=== PATIENT | female | born 1955 | race Caucasian/White ===

== ENCOUNTER → 2020-02-04 11:47 | Outpatient (BNVA) | payer OTHER, SELFPAY | PROVIDERS: Family Provider Nurse Practitioner; PCP Nurse Practitioner; Visit Provider Registered Nurse | DX: J01.41 Acute recurrent pansinusitis (principal); R68.89 Other general symptoms and signs; R05 Cough; R50.9 Fever, unspecified; J01.40 Acute pansinusitis, unspecified; Z71.89 Other specified counseling | CPT/HCPCS: 87635 ==

== ENCOUNTER 2022-06-07 07:49 | Oncology outpatient (recurring) (ONCR) | payer OTHER, SELFPAY ==
[2022-06-07 09:21] LABS: Basophils % 0.4 %; Eosinophils # 1.1 10^3/uL (0.0-0.8); Eosinophils % 10.9 %; Hematocrit 37.2 % (37.0-47.0); Hemoglobin 10.9 g/dL (11.5-15.3); Lymphocytes # 2.6 10^3/uL (0.8-4.8); Lymphocytes % 25.5 %; Mean Corpuscular HGB Conc 29.3 g/dL (30.0-36.0); Mean Corpuscular Hemoglobin 19.6 pg (28.0-34.0); Mean Corpuscular Volume 66.8 fl (81-99); Mean Platelet Volume 8.6 fL (7.4-10.4); Monocytes # 0.6 10^3/uL (0.2-0.9); Monocytes % 5.9 %; Neutrophils # 5.68 10^3/uL (1.8-7.7); Neutrophils % 56.9 %; Nucleated Red Blood Cells % 0 %; Platelet Count 564 10^3/cmm (130-400); Red Blood Count 5.57 10^6/uL (4.1-5.3); Red Cell Distribution Width 19.8 % (12.1-15.1)
[2022-06-07 09:52] LABS: Carcinoembryonic Antigen 40.6 ng/mL (0.0-4.7)
[2022-06-07 10:03] LABS: Alanine Aminotransferase 13 U/L (0-33); Albumin Level 3.9 g/dL (3.5-5.2); Alkaline Phosphatase 87 U/L (35-105); Anion Gap 15.5 (5-19); Aspartate Amino Transferase 10 U/L (0-32); Blood Urea Nitrogen 11 mg/dL (8-23); Calcium 9.6 mg/dL (8.5-10.5); Carbon Dioxide 25 mmol/L (22-29); Chloride 98 mmol/L (98-107); Globulin 3.2 g/dL (1.3-4.6); Glomerular Filtration Rate 124.2 mL/min (90-130); Glucose 125 mg/dL (65-115); Osmolality Calculated 279 mOsm/kg (285-295); Potassium 4.5 mmol/L (3.5-5.1); Sodium 134 mmol/L (136-145); Total Bilirubin 0.2 mg/dL (0.15-1.2); Total Protein 7.1 g/dL (6.6-8.7)
[2022-06-07 13:38] LABS: Iron 15 ug/dL (37-145); Percent Saturation 3.8 % (20-50); Total Iron Binding Capacity 392 mcg/dl; Unsaturated Iron Binding 377 ug/dL (112-347)
== END 2022-06-14 23:59 | disposition home or self-care (01) ==
PROVIDERS: PCP Nurse Practitioner; Visit Provider Internal Medicine Medical Oncology
DX: C18.2 Malignant neoplasm of ascending colon (principal); Z79.899 Other long term (current) drug therapy; R59.0 Localized enlarged lymph nodes; D64.9 Anemia, unspecified
CPT/HCPCS: 80053; 82378; 83540; 83550; 85025

== ENCOUNTER 2022-06-22 13:28 | Outpatient (CLI) | payer OTHER, SELFPAY ==
--- NOTE | 2022-06-22 13:38 | USCV_ITS ---
Beth Alexander Age: 66 Gender: F : 1955 Exam Date: 06/22/2022 13:57 Ordering Phys: Nikole Collado NP Technologist: KRIS [place] [facility] [place] DIZZINESS AND SYNCOPE Risk Factors: Previous Vascular Surgery: Right Brachial BP: / Left Brachial BP: / Right Left Velocity (cm/s) Spectral Plaque Velocity (cm/s) Spectral Plaque Syst/Diast Broadening Syst/Diast Broadening 102.50/28.70 Prox CCA 101.20/ 26.30 109.20/29.80 Mid CCA 107.80/ 23.70 93.70/ 20.90 Distal CCA 93.30 / 21.00 127.40/32.60 Prox ICA 156.90/ 41.90 119.20/35.20 Mid ICA 149.10/ 45.10 98.60/ 34.40 Distal ICA 118.10/ 37.30 150.70 ECA 172.50 1.17 ICA/CCA 1.46 Antegrade Vertebral Antegrade 60.70/ 16.00 cm/s 58.40/ 25.40 cm/s Tri Subclavian Tri 184.9 121.3 0 0 CONCLUSIONS Right ICA stenosis 50-69%. Mild atheromatous plaque right carotid bulb/ICA. Left ICA stenosis 50-69%. Mild atheromatous plaque left carotid bulb/ICA. Normal antegrade Doppler flow noted in the right vertebral artery. Normal antegrade Doppler flow noted in the left vertebral artery. Regino Vasquez MD (Electronically Signed) Final Date: 22 June 2022 15:52 S
== END 2022-06-22 13:29 | disposition home or self-care (01) ==
LOC: RAD 13:30
PROVIDERS: PCP Nurse Practitioner; Visit Provider Nurse Practitioner Family
DX: I65.23 Occlusion and stenosis of bilateral carotid arteries (principal); R55 Syncope and collapse; R51.9 Headache, unspecified
CPT/HCPCS: 93880

== ENCOUNTER 2022-07-18 14:35 | Outpatient (CLI) | payer OTHER, SELFPAY ==
--- NOTE | 2022-07-18 14:41 | MM_ITS ---
WS: [id number] BILATERAL 3D TOMOSYNTHESIS DIGITAL DIAGNOSTIC MAMMOGRAPHY WITH CAD CLINICAL INFORMATION: abnormal PET COMPARISON: Outside PET/CT report July 10, 2022 TECHNIQUE: Bilateral CC, MLO, and ML views. FINDINGS: Scattered fibroglandular densities bilaterally. Ovoid solid nodule upper outer RIGHT breast measuring 1.4 x 1.8 cm. Ultrasound described below. A few small ovoid asymmetric densities LEFT breast anterior depth and posterior depth outer LEFT opal st may represent small intramammary lymph nodes but indeterminant. No prior comparisons. This can be further evaluated with ultrasound when patient returns for biopsy. Punctate and lucent centered calc ifications. ULTRASOUND BREAST RIGHT TECHNIQUE: Ultrasound right breast focused area of concern. CLINICAL INFORMATION: abnormal PET FINDINGS: Ultrasound RIGHT breast RIGHT axilla. Prominent lymph node measuring 3.0 x 0.9 x 2.3 cm. This is inde terminant and could be sampled at the time of breast biopsy. Hypoechoic solid lesion at the 9:00 posi tion 2 cm from nipple measuring 2.0 1.0x1.7 cm. Recommend further evaluation with ultrasound-guided b iopsy. Incidental tiny cysts at the 9:00 position near the areola. MM/[place] [id number] IMPRESSION: BI-RADS: 5-Highly Suggestive of Malignancy FOLLOW UP: US Guided Biopsy Recommended Recommend ultrasound-guided biopsy RIGHT breast lesion. Enlarged RIGHT axillary lymph node can also be sampled at that time. Recommend ultrasound of the small ovoid asymmetric densities outer LEFT breast near the 3:00 and 4:00 positions when patient returns for biopsy.
--- NOTE | 2022-07-18 15:43 | US_ITS ---
WS: [id number] BILATERAL 3D TOMOSYNTHESIS DIGITAL DIAGNOSTIC MAMMOGRAPHY WITH CAD CLINICAL INFORMATION: abnormal PET COMPARISON: Outside PET/CT report July 10, 2022 TECHNIQUE: Bilateral CC, MLO, and ML views. FINDINGS: Scattered fibroglandular densities bilaterally. Ovoid solid nodule upper outer RIGHT breast measuring 1.4 x 1.8 cm. Ultrasound described below. A few small ovoid asymmetric densities LEFT breast anterior depth and posterior depth outer LEFT opal st may represent small intramammary lymph nodes but indeterminant. No prior comparisons. This can be further evaluated with ultrasound when patient returns for biopsy. Punctate and lucent centered calc ifications. ULTRASOUND BREAST RIGHT TECHNIQUE: Ultrasound right breast focused area of concern. CLINICAL INFORMATION: abnormal PET FINDINGS: Ultrasound RIGHT breast RIGHT axilla. Prominent lymph node measuring 3.0 x 0.9 x 2.3 cm. This is inde terminant and could be sampled at the time of breast biopsy. Hypoechoic solid lesion at the 9:00 posi tion 2 cm from nipple measuring 2.0 1.0x1.7 cm. Recommend further evaluation with ultrasound-guided b iopsy. Incidental tiny cysts at the 9:00 position near the areola. US/US breast RT limited* [id number] IMPRESSION: BI-RADS: 5-Highly Suggestive of Malignancy FOLLOW UP: US Guided Biopsy Recommended Recommend ultrasound-guided biopsy RIGHT breast lesion. Enlarged RIGHT axillary lymph node can also be sampled at that time. Recommend ultrasound of the small ovoid asymmetric densities outer LEFT breast near the 3:00 and 4:00 positions when patient returns for biopsy.
[2022-07-18 16:55] LABS: Basophils % 0.5 %; Eosinophils # 0.2 10^3/uL (0.0-0.8); Eosinophils % 2.8 %; Hematocrit 43.4 % (37.0-47.0); Lymphocytes # 3.8 10^3/uL (0.8-4.8); Lymphocytes % 45.2 %; Mean Corpuscular Hemoglobin 21.8 pg (28.0-34.0); Mean Corpuscular Volume 72.8 fl (81-99); Monocytes # 0.6 10^3/uL (0.2-0.9); Monocytes % 6.9 %; Neutrophils # 3.74 10^3/uL (1.8-7.7); Neutrophils % 44.4 %; Nucleated Red Blood Cells % 0 %; Platelet Count 446 10^3/cmm (130-400); Red Blood Count 5.96 10^6/uL (4.1-5.3); Red Cell Distribution Width 25.9 % (12.1-15.1); White Blood Count 8.4 10^3/uL (4.0-10.0)
[2022-07-18 17:47] LABS: Alanine Aminotransferase 10 U/L (0-33); Albumin Level 4.1 g/dL (3.5-5.2); Alkaline Phosphatase 85 U/L (35-105); Anion Gap 15.7 (5-19); Aspartate Amino Transferase 9 U/L (0-32); Blood Urea Nitrogen 12 mg/dL (8-23); Calcium 9.6 mg/dL (8.5-10.5); Carbon Dioxide 27 mmol/L (22-29); Globulin 3.2 g/dL (1.3-4.6); Glomerular Filtration Rate 124.2 mL/min (90-130); Glucose 108 mg/dL (65-115); Potassium 3.7 mmol/L (3.5-5.1); Sodium 136 mmol/L (136-145); Total Bilirubin 0.2 mg/dL (0.15-1.2); Total Protein 7.3 g/dL (6.6-8.7)
[2022-07-18 21:36] LABS: Carcinoembryonic Antigen 8.1 ng/mL (0.0-4.7)
[2022-07-18 21:44] LABS: Chloride 97 mmol/L (98-107)
== END 2022-07-18 14:36 | disposition home or self-care (01) ==
PROVIDERS: PCP Nurse Practitioner Family; Visit Provider Internal Medicine Medical Oncology
DX: R93.89 Abnormal findings on diagnostic imaging of other specified body structures (principal); N63.25 Unspecified lump in the left breast, overlapping quadrants; N63.10 Unspecified lump in the right breast, unspecified quadrant; C18.0 Malignant neoplasm of cecum
CPT/HCPCS: 36415; 76642; 77062; 80053; 82378; 85025

== ENCOUNTER 2022-08-18 11:51 | Outpatient (CLI) | payer OTHER, SELFPAY ==
--- NOTE | 2022-08-18 | US_ITS ---
WS: [id number] ULTRASOUND-GUIDED RIGHT BREAST BIOPSY CLINICAL INFORMATION: abnormal mammogram FINDINGS: The procedure including risks, benefits, and complications were discussed with the patient who agreed to proceed. Using sterile technique patient was prepped and draped in the usual sterile fashion. Aft er 1% lidocaine utilizing real-time ultrasound guidance 5 14-gauge cores were obtained of the RIGHT b reast lesion at the 9 o'clock position. Subsequently a titanium clip was placed in the biopsy cavity. Next, the RIGHT axillary lymph node was biopsied. After 1% lidocaine utilizing real-time ultrasound g uidance 2 14-gauge cores were obtained of the RIGHT axillary lymph node. Subsequently a titanium clip was placed in the biopsy cavity. Pathology demonstrates A. Breast, right breast mass , ultrasound-guided biopsy: - Fibroadenoma with sclerosing adenosis. - No malignancy identified. B. Lymph node, right axillary , ultrasound-guided biopsy: - Benign lymphoid tissue with sinus histiocytosis. - No malignancy identified. US/US biopsy lymph node breast/ax IMPRESSION: 1. Uncomplicated ultrasound-guided RIGHT breast biopsy and RIGHT axillary lymp h node biopsy. 2. The pathology demonstrates fibroadenoma right breast and benign lymphoid ti ssue Right axillary lymph node. 3. Recommend 6 month follow-up RIGHT breast ultrasound to confirm stability. BI-RADS: 3-Probably Benign FOLLOW UP: 6 Month Follow-up
--- NOTE | 2022-08-18 11:59 | US_ITS ---
WS: [id number] ULTRASOUND-GUIDED RIGHT BREAST BIOPSY CLINICAL INFORMATION: abnormal mammogram FINDINGS: The procedure including risks, benefits, and complications were discussed with the patient who agreed to proceed. Using sterile technique patient was prepped and draped in the usual sterile fashion. Aft er 1% lidocaine utilizing real-time ultrasound guidance 5 14-gauge cores were obtained of the RIGHT b reast lesion at the 9 o'clock position. Subsequently a titanium clip was placed in the biopsy cavity. Next, the RIGHT axillary lymph node was biopsied. After 1% lidocaine utilizing real-time ultrasound g uidance 2 14-gauge cores were obtained of the RIGHT axillary lymph node. Subsequently a titanium clip was placed in the biopsy cavity. Pathology demonstrates A. Breast, right breast mass , ultrasound-guided biopsy: - Fibroadenoma with sclerosing adenosis. - No malignancy identified. B. Lymph node, right axillary , ultrasound-guided biopsy: - Benign lymphoid tissue with sinus histiocytosis. - No malignancy identified. US/[place] [id number] IMPRESSION: 1. Uncomplicated ultrasound-guided RIGHT breast biopsy and RIGHT axillary lymp h node biopsy. 2. The pathology demonstrates fibroadenoma right breast and benign lymphoid ti ssue Right axillary lymph node. 3. Recommend 6 month follow-up RIGHT breast ultrasound to confirm stability. BI-RADS: 3-Probably Benign FOLLOW UP: 6 Month Follow-up
--- NOTE | 2022-08-18 11:59 | US_ITS ---
WS: [id number] ULTRASOUND BREAST LEFT TECHNIQUE: Ultrasound left breast focused area of concern. CLINICAL INFORMATION: abnormal mammogram COMPARISON: None. FINDINGS: Ultrasound LEFT breast at the 3 to 4:00 position. Hypoechoic solid well-circumscribed nodules at the 3:00 position, 3 cm nipple measuring 1.2 x 1.0 x 0.7 cm and 3:00 position 1 cm from the nipple, measu ring 0.7 x 0.6 x 0.5 cm most likely fibroadenomas considering prior history and recent right-sided bi opsy that demonstrated a fibroadenoma. Additional smaller incidental cysts. US/US breast LT limited* [id number] IMPRESSION: BI-RADS 3 probably benign FOLLOW UP: 6 month follow-up LEFT breast ultrasound
== END 2022-08-18 11:52 | disposition home or self-care (01) ==
LOC: RAD 11:52
PROVIDERS: PCP Nurse Practitioner Family; Visit Provider Internal Medicine Medical Oncology
DX: D24.1 Benign neoplasm of right breast (principal); D36.7 Benign neoplasm of other specified sites
CPT/HCPCS: 19083; 38505; 76642; 76942; 88305; 88342

== ENCOUNTER 2022-11-29 12:03 | Oncology outpatient (recurring) (ONCR) | payer MEDICAID, SELFPAY ==
[2022-11-29 12:57] LABS: Basophils % 0.4 %; Eosinophils # 0.1 10^3/uL (0.0-0.8); Eosinophils % 1.9 %; Hematocrit 47.4 % (37.0-47.0); Hemoglobin 15.4 g/dL (11.5-15.3); Lymphocytes # 2.8 10^3/uL (0.8-4.8); Lymphocytes % 38.2 %; Mean Corpuscular HGB Conc 32.5 g/dL (30.0-36.0); Mean Corpuscular Hemoglobin 25.6 pg (28.0-34.0); Mean Corpuscular Volume 78.9 fl (81-99); Mean Platelet Volume 8.9 fL (7.4-10.4); Monocytes # 0.5 10^3/uL (0.2-0.9); Monocytes % 6.8 %; Neutrophils # 3.83 10^3/uL (1.8-7.7); Neutrophils % 52.4 %; Nucleated Red Blood Cells % 0 %; Platelet Count 467 10^3/cmm (130-400); Red Blood Count 6.01 10^6/uL (4.1-5.3); White Blood Count 7.3 10^3/uL (4.0-10.0)
[2022-11-29 13:24] LABS: Carcinoembryonic Antigen 7.6 ng/mL (0.0-4.7)
[2022-11-29 13:35] LABS: Alanine Aminotransferase 17 U/L (0-33); Albumin Level 4.2 g/dL (3.5-5.2); Alkaline Phosphatase 83 U/L (35-105); Anion Gap 18.8 (5-19); Aspartate Amino Transferase 12 U/L (0-32); Blood Urea Nitrogen 17 mg/dL (8-23); Calcium 9.4 mg/dL (8.5-10.5); Carbon Dioxide 22 mmol/L (22-29); Chloride 95 mmol/L (98-107); Glucose 128 mg/dL (65-115); Osmolality Calculated 277 mOsm/kg (285-295); Potassium 3.8 mmol/L (3.5-5.1); Sodium 132 mmol/L (136-145); Total Bilirubin 0.2 mg/dL (0.15-1.2); Total Protein 7.2 g/dL (6.6-8.7)
[2022-11-29 15:39] LABS: Iron 83 ug/dL (37-145)
[2022-11-29 15:39] LABS: Iron 82 ug/dL (37-145); Percent Saturation 21.8 % (20-50); Total Iron Binding Capacity 375 mcg/dl; Unsaturated Iron Binding 293 ug/dL (112-347)
== END 2022-12-12 23:59 | disposition home or self-care (01) ==
PROVIDERS: Nurse Practitioner; PCP Nurse Practitioner Family; Visit Provider Internal Medicine Medical Oncology
DX: C18.2 Malignant neoplasm of ascending colon (principal); C78.1 Secondary malignant neoplasm of mediastinum; C79.31 Secondary malignant neoplasm of brain; C77.3 Secondary and unspecified malignant neoplasm of axilla and upper limb lymph nodes; D50.9 Iron deficiency anemia, unspecified; Z79.899 Other long term (current) drug therapy
CPT/HCPCS: 36415; 80053; 82378; 83540; 83550; 85025

== ENCOUNTER 2023-01-10 08:27 | Outpatient (CLI) | payer MEDICARE, MEDICAID, SELFPAY ==
--- NOTE | 2023-01-10 10:00 | CT_ITS ---
WS: [id number] CT CHEST, ABDOMEN, AND PELVIS TECHNIQUE: Contrast-enhanced CT of the chest, abdomen, and pelvis with coronal and sagittal reformatt ed images. CLINICAL INFORMATION: followup PET/CT from 06/2022 (outside facility) COMPARISON: None. DLP: 947.[address] scans at [facility] use at least one of these dose optimization techniques: automated e xposure control; mA and/or kV adjustment per patient size (includes targeted exams where dose is matc hed to clinical indication); or iterative reconstruction. CT CHEST: Previously described RIGHT lateral breast nodule previously biopsied unchanged from the prior PET/CT August 09, 2022 measuring 1.5 x 1.3 cm with a tiny central calcification. Prior biopsy was benign. N o acute pulmonary infiltrates. Mild chronic emphysematous changes. No focal pneumonia or pleural flui d. There is a new suspicious pulmonary nodule in the RIGHT lower lobe measuring 8 mm not present on t he prior PET/CT July 10, 2022. Recommend further evaluation with PET/CT to assess for activity. Metastatic disease not excluded. LEFT lung is well aerated. No mediastinal or hilar lymphadenopathy. Normal caliber thoracic aorta. Ao rtic calcification. Moderate atheromatous disease descending thoracic aorta. No mediastinal or hilar lymphadenopathy. No axillary lymphadenopathy. Hypertrophic changes thoracic spine. CT ABDOMEN AND PELVIS: Diffuse fatty infiltration liver. Normal pancreatic parenchymal enhancement. Normal portal vein and s plenic vein. Moderate atheromatous disease abdominal aorta with eccentric atheromatous plaque. Adrena l glands are normal. Normal renal parenchymal enhancement. No hydronephrosis. Small renal cysts. No a bdominal or pelvic lymphadenopathy. No inguinal lymphadenopathy. Normal sigmoid colon. A few air-fluid levels in the transverse colon. Focal area of narrowing in the descending LEFT colon may be due to spasm however recommend further evaluation with colonoscopy. Evid ence of prior RIGHT hemicolectomy. CT/CT chest abdpel w/*[id number] IMPRESSION: 1. New solid RIGHT lower lobe pulmonary nodule measuring 8 mm suspicious in ap pearance. This is nonspecific but metastatic disease not excluded. Recommend fu rther evaluation with PET/CT to assess for activity. This is new since the prio r studies. 2. Previously described RIGHT breast nodule was previously biopsied and shown to represent fibroadenoma. New central calcification. This is unchanged in size . 3. Air-fluid levels in the transverse colon with focal area of luminal narrowi ng or stricture in the descending LEFT colon. This is indeterminant and recomme nd further evaluation with colonoscopy. 4. No mediastinal or hilar lymphadenopathy. No axillary lymphadenopathy. 5. Hepatomegaly diffuse fatty infiltration liver. 6. No adenopathy in the abdomen or pelvis. 7. No other suspicious findings.
[2023-01-10] MEDS: iohexol 350 mg/mL 500 mL Btl (per mL) IV (10:04)
[2023-01-10] MEDS: iohexol 350 mg/mL 500 mL Btl (per mL) PO (10:04)
== END 2023-01-10 08:28 | disposition home or self-care (01) ==
LOC: RAD 08:36
PROVIDERS: PCP Nurse Practitioner Family; Visit Provider Nurse Practitioner
DX: C18.0 Malignant neoplasm of cecum (principal); R91.1 Solitary pulmonary nodule; D24.1 Benign neoplasm of right breast
CPT/HCPCS: 71260; 74177; Q9967

== ENCOUNTER 2023-02-03 06:05 | Outpatient (CLI) | payer MEDICARE, MEDICAID, SELFPAY ==
--- NOTE | 2023-02-03 10:30 | PETR_ITS ---
PROCEDURE INFORMATION: Exam: PET/CT Skull Base to Mid-thigh Exam date and time: 02/03/2023 11:24 AM Age: 67 years old Clinical indication: Condition or disease; Primary cancer: Malignant neoplasm of cecum; Follow-up oncological assessment; Condition/disease: New lung nodule; Additional info: New lung nodule per CT LABS AND CLINICAL REPORTS: Glucose: 141 mg/dl Treatment strategy for malignancy (PET staging): Restaging (PS) TECHNIQUE: Imaging protocol: Following at least four-hour fasting and following the injection of radiopharmaceutical, low dose CT images were obtained. Then, PET images were obtained. Attenuation corrected images were constructed using the CT scan. Fused images of PET and CT were reviewed. The standardized uptake values (SUV) reported below are maximum values within a region of interest, expressed in gm/ml. Exam includes orbital meatal line to mid-thigh. Radiopharmaceutical: 15.87 mCi F-18 FDG (Fluorodeoxyglucose), IV. Time of imaging post radiopharmaceutical administration: 1 hour Injection site: Left antecubital COMPARISON: CT chest, abdomen and pelvis 01/10/2023, PT PET Scan 07/10/2022 10:26 AM FINDINGS: Brain: Visualized brain has normal physiologic uptake. Pharynx: No abnormal uptake. Larynx: No abnormal uptake. Lungs, pleura and trachea: A solid noncalcified right lower lobe nodule measures 8 mm on series 3, image 59, SUV max 0.9 and is similar in size compared with 01/10/2023. This nodule was significantly less conspicuous and measured 2-3 mm on the prior PET-CT without elevated uptake. Heart: Normal physiologic uptake. Mediastinal space: No abnormal uptake. Liver: No abnormal uptake. Subtle uptake along the medial margin of the left lower lobe on series 4, image 95 appears to represent superimposed physiologic activity within adjacent distal stomach proximal duodenum. Gallbladder and bile ducts: No abnormal uptake. Pancreas: No abnormal uptake. Spleen: No abnormal uptake. Calcified granulomas in the spleen are present. Adrenal glands: No abnormal uptake. Kidneys and ureters: Normal physiologic uptake. Stomach and bowel: No abnormal uptake. Vasculature: No abnormal uptake. There are diffuse atherosclerotic changes. Lymph nodes: Small similar in size mediastinal lymph nodes are noted, some of which demonstrates low-level activity. Examples: in the pretracheal space measuring 6 mm on series 3, image 48, SUV max 2.6 (previously 2.9). An aortopulmonary window lymph node measuring 5 mm on series 3, image 50 is noted, SUV max 2.6 (previously 2.6). A precarinal lymph node measures 1.4 x 1.0 cm on series 3, image 54, SUV max 2.5 (previously 3.7). Small subcarinal lymph nodes measuring less than 1 cm are identified, SUV max 3.1 (previously 2.9). A small focus of uptake within the inferior left hilar region in a lymph node measuring approximately 8 mm on series 3, image 58 is present, SUV max 3.4 (previously 3.4). Minimal uptake is noted in the right hilar region possibly within an approximately 6 mm lymph node on series 3, image 56, SUV max 3.0 (previously 3.2). Assessment of the hilar regions is limited without intravenous contrast. Bones/joints: Mild degenerative appearing sclerotic changes are noted at the sacroiliac joints.There is mild diffuse vertebral body spondylosis. Mild degenerative appearing uptake is noted in the left C4-C5 facet joint, SUV max 3.0. Soft tissues: A similar in size lateral right breast soft tissue density nodule with a central biopsy clip measures 1.7 cm in diameter on series 3, image 67, SUV max 1.8 (previously 1.7). METRICS: Mediastinal blood pool: SUV max 2.5 PET/PET skulltothi SUBSEQ [id number] IMPRESSION: 1. A right lower lobe nodule is not radiotracer avid. This nodule appears to have been faintly present on the prior PET-CT and is increased in size since the prior PET-CT, similar in size compared with 01/10/2023. Assessment of small nodules can be limited by PET-CT. Although lack of uptake favors a benign finding, a metastatic nodule, given the history of malignancy and the interval increase in size since the prior PET-CT cannot be entirely excluded from this exam. 2. Similar size of small mediastinal and hilar lymph nodes demonstrating low level activity which is similar to slightly decreased compared with the prior PET-CT.This may be reactive, secondary to infectious or inflammatory involvement. Neoplastic involvement cannot be entirely excluded. 3. Similar in size previously biopsied soft tissue density nodule in the right breast without significant uptake (SUV max 1.8, previously 1.7) compatible with a benign finding. 4. Additional nonurgent findings as detailed above.
== END 2023-02-03 06:06 | disposition home or self-care (01) ==
LOC: RAD 02-05 06:05
PROVIDERS: PCP Nurse Practitioner Family; Visit Provider Internal Medicine Medical Oncology
DX: C18.0 Malignant neoplasm of cecum (principal); R91.1 Solitary pulmonary nodule
CPT/HCPCS: 78815; A9552

== ENCOUNTER 2023-02-28 09:47 | Outpatient (CLI) | payer MEDICARE, MEDICAID, SELFPAY | END 2023-02-28 09:48 | disposition home or self-care (01) | PROVIDERS: PCP Nurse Practitioner Family; Visit Provider Internal Medicine Medical Oncology | DX: Z08 Encounter for follow-up examination after completed treatment for malignant neoplasm; Z85.038 Personal history of other malignant neoplasm of large intestine; R91.1 Solitary pulmonary nodule; M47.812 Spondylosis without myelopathy or radiculopathy, cervical region; M50.321 Other cervical disc degeneration at C4-C5 level; R59.0 Localized enlarged lymph nodes; K76.89 Other specified diseases of liver; Z92.21 Personal history of antineoplastic chemotherapy; Z87.891 Personal history of nicotine dependence | CPT/HCPCS: 36415; 76642; 80053; 82378; 85025; 99214 ==

== ENCOUNTER 2023-02-28 09:54 | Oncology outpatient (recurring) (ONCR) | payer MEDICARE, MEDICAID, SELFPAY ==
--- NOTE | 2023-02-28 10:00 | US_ITS ---
WS: [id number] ULTRASOUND BREAST RIGHT TECHNIQUE: Ultrasound right breast focused area of concern. CLINICAL INFORMATION: abnormal mammogram COMPARISON: Ultrasound August 18, 2022 FINDINGS: Previously described fibroadenoma 9:00 position 2 cm from the nipple is unchanged. Stable biopsy clip . This measures approximately 1.9 x 1.1 x 1.8 cm. Stable RIGHT axillary lymph nodes. No new suspicious findings. Recommend return to annual screening gloria thompson. US/US breast RT limited* [id number] IMPRESSION: BI-RADS 2 benign Return to annual screening mammography
[2023-02-28 11:22] LABS: Basophils % 0.4 %; Eosinophils # 0.2 10^3/uL (0.0-0.8); Eosinophils % 2.1 %; Hematocrit 47.2 % (37.0-47.0); Lymphocytes # 3.6 10^3/uL (0.8-4.8); Lymphocytes % 37.8 %; Mean Corpuscular HGB Conc 31.8 g/dL (30.0-36.0); Mean Corpuscular Hemoglobin 26.4 pg (28.0-34.0); Mean Platelet Volume 8.9 fL (7.4-10.4); Monocytes # 0.8 10^3/uL (0.2-0.9); Monocytes % 8.7 %; Neutrophils % 50.8 %; Nucleated Red Blood Cells % 0 %; Platelet Count 439 10^3/cmm (130-400); Red Blood Count 5.69 10^6/uL (4.1-5.3); Red Cell Distribution Width 14.7 % (12.1-15.1); White Blood Count 9.6 10^3/uL (4.0-10.0)
[2023-02-28 11:58] LABS: Carcinoembryonic Antigen 7.6 ng/mL (0.0-4.7)
[2023-02-28 12:09] LABS: Alanine Aminotransferase 13 U/L (0-33); Albumin Level 3.9 g/dL (3.5-5.2); Alkaline Phosphatase 81 U/L (35-105); Anion Gap 18.7 (5-19); Aspartate Amino Transferase 13 U/L (0-32); Blood Urea Nitrogen 11 mg/dL (8-23); Calcium 9.9 mg/dL (8.5-10.5); Carbon Dioxide 24 mmol/L (22-29); Chloride 95 mmol/L (98-107); Globulin 2.9 g/dL (1.3-4.6); Glomerular Filtration Rate 100.3 mL/min (90-130); Glucose 112 mg/dL (65-115); Osmolality Calculated 278 mOsm/kg (285-295); Potassium 3.7 mmol/L (3.5-5.1); Sodium 134 mmol/L (136-145); Total Bilirubin 0.2 mg/dL (0.15-1.2); Total Protein 6.8 g/dL (6.6-8.7)
== END 2023-03-14 23:59 | disposition home or self-care (01) ==
PROVIDERS: PCP Nurse Practitioner Family; Visit Provider Internal Medicine Medical Oncology
DX: C18.0 Malignant neoplasm of cecum (principal); R92.8 Other abnormal and inconclusive findings on diagnostic imaging of breast
CPT/HCPCS: 36415; 76642; 80053; 82378; 85025

== ENCOUNTER 2023-07-17 13:36 | Oncology outpatient (recurring) (ONCR) | payer MEDICARE, MEDICAID, SELFPAY ==
[2023-07-17 13:47] VITALS: BP 134/75; PULSE 101; RESP 16; TEMP 36.4; O2SAT 93
[2023-07-17 13:59] LABS: Basophils % 0.4 %; Eosinophils # 0.2 10^3/uL (0.0-0.8); Eosinophils % 2.1 %; Hematocrit 48.2 % (36-47); Lymphocytes % 33.1 %; Mean Corpuscular HGB Conc 32.8 g/dL (30-55); Mean Corpuscular Hemoglobin 26.6 pg (27-33); Mean Corpuscular Volume 81.1 fl (85-98); Mean Platelet Volume 8.8 fL (7.4-10.4); Monocytes # 0.6 10^3/uL (0.2-0.9); Monocytes % 7.1 %; Neutrophils # 5.11 10^3/uL (1.8-7.7); Neutrophils % 57.2 %; Nucleated Red Blood Cells % 0 %; Platelet Count 427 10^3/cmm (157-399); Red Blood Count 5.94 10^6/uL (3.85-5.65); Red Cell Distribution Width 14.8 % (12.1-15.1); White Blood Count 8.96 10^3/uL (3.29-11.43)
[2023-07-17 14:29] LABS: Carcinoembryonic Antigen 8.3 ng/mL (0.0-4.7)
[2023-07-17 14:40] LABS: Alanine Aminotransferase 15 U/L (0-33); Albumin Level 4.4 g/dL (3.5-5.2); Alkaline Phosphatase 76 U/L (35-105); Anion Gap 16.6 (5-19); Aspartate Amino Transferase 13 U/L (0-32); Blood Urea Nitrogen 15 mg/dL (8-23); Calcium 9.7 mg/dL (8.5-10.5); Carbon Dioxide 27 mmol/L (22-29); Chloride 98 mmol/L (98-107); Globulin 2.9 g/dL (1.3-4.6); Glucose 156 mg/dL (65-115); Osmolality Calculated 290 mOsm/kg (285-295); Potassium 3.6 mmol/L (3.5-5.1); Sodium 138 mmol/L (136-145); Total Bilirubin 0.3 mg/dL (0.15-1.2); Total Protein 7.3 g/dL (6.6-8.7)
[2023-07-17 17:55] LABS: Ferritin 19 ng/mL (15-150); Iron 96 ug/dL (37-145); Percent Saturation 26.8 % (20-50); Total Iron Binding Capacity 357 mcg/dl; Unsaturated Iron Binding 261 ug/dL (112-347)
== END 2023-08-14 23:59 | disposition home or self-care (01) ==
PROVIDERS: Nurse Practitioner Family; PCP Nurse Practitioner Family; Visit Provider Internal Medicine Medical Oncology
DX: C18.2 Malignant neoplasm of ascending colon (principal); C78.1 Secondary malignant neoplasm of mediastinum; C79.31 Secondary malignant neoplasm of brain; C77.3 Secondary and unspecified malignant neoplasm of axilla and upper limb lymph nodes; D50.9 Iron deficiency anemia, unspecified; Z79.899 Other long term (current) drug therapy
CPT/HCPCS: 36415; 80053; 82378; 82728; 83540; 83550; 85025; 99214

== ENCOUNTER 2023-09-17 14:37 | Outpatient (CLI) | payer MEDICARE, MEDICAID, SELFPAY ==
[2023-09-17] MEDS: iohexol 350 mg/mL 500 mL Btl (per mL) PO (15:26)
--- NOTE | 2023-09-17 16:00 | CT_ITS ---
WS: [id number] CT CHEST, ABDOMEN AND PELVIS WITH CONTRAST HISTORY: Restaging colon cancer. TECHNIQUE: Contiguous 5 mm axial imaging performed through the chest, abdomen and pelvis with IV cont rast, oral contrast has been provided. Coronal and sagittal reformats chest. Coronal and sagittal ref ormats through the abdomen and pelvis. All CT scans at [facility] use at least one of these d ose optimization techniques: automated exposure control; mA and/or kV adjustment per patient size (in cludes targeted exams where dose is matched to clinical indication); or iterative reconstruction. CONTRAST: Omnipaque 350; 100 mL IV. DLP: 951.71 mGy.cm COMPARISON: 01/10/2023, PET/CT 02/03/[address]: Interval development of new, bilateral and multilobar pulmonary nodules since 01/10/2023. Th e previously described 8 mm well-circumscribed nodule in the RIGHT lower lobe has increased from 8 to 15 mm in size. There are now new additional smaller nodules scattered throughout the lungs. No dense area of consolidation or pneumonia. No pericardial or pleural effusions. Extensive atherosclerotic p laque within the thoracic aorta. Irregular plaque within the descending aorta. Heart is normal size. Mediastinal and hilar lymph nodes have slightly increased in size since the prior study. Largest lymp h node is 13 mm on the inferior RIGHT paratracheal region. There are smaller bilateral hilar lymph no katty. No axillary adenopathy. Previously biopsied RIGHT breast mass is slightly increased in size now measu ring 15 x 17 mm. Prior negative biopsy. Mild loss of height involving T12. Variable density along the superior vertebral body. Abdomen CT: Normal liver. No metastatic disease. Normal size spleen. Negative gallbladder. Normal moyer creas. No bile duct dilatation. Very mild thickening of the LEFT adrenal gland limbs. No mass. Normal RIGHT adrenal gland. Bilateral cortical cyst within each kidney. There is a too small to characteriz e cortical hypodensity in the posterior LEFT kidney at 7 mm. Extensive atherosclerosis within the abd ominal aorta. There is intimal thickening and plaque. No aneurysm. Stomach is filled with food products. No small bowel obstruction. Prior RIGHT hemicolectomy. Retentio n of fecal material throughout the visualized colon. No obstruction is identified. Distal colon is na rrowed but no obstruction. No ascites. No adenopathy. Pelvic CT: No free fluid or adenopathy in the pelvis. Negative urinary bladder. No osteoblastic or osteolytic bone disease. IMPRESSION: 1. Multilobar, bilateral pulmonary nodules are new since 01/10/2023. The previously described nodule i n the RIGHT lower lobe has increased from 8 mm to 15 mm. There are additional smaller pulmonary nodul es highly suspicious for metastatic disease. 2. Mild increase in the size of the mediastinal and hilar lymph nodes. The largest lymph node is 13 m m in the RIGHT inferior paratracheal region. 3. No metastatic disease to the liver or adrenal glands. 4. No adenopathy within the abdomen or pelvis. No ascites. 5. Prior RIGHT hemicolectomy. 6. New compression of T12. Probably osteoporotic compression fracture. Early metastatic disease shoul d also be included in the differential. 7. Recommend follow-up PET/CT imaging.
[2023-09-17] MEDS: iohexol 350 mg/mL 500 mL Btl (per mL) IV (16:30)
== END 2023-09-17 14:38 | disposition home or self-care (01) ==
LOC: RAD 14:37
PROVIDERS: PCP Nurse Practitioner Family; Visit Provider Nurse Practitioner Family
DX: C18.0 Malignant neoplasm of cecum (principal); R91.8 Other nonspecific abnormal finding of lung field; R59.0 Localized enlarged lymph nodes; Z90.49 Acquired absence of other specified parts of digestive tract; M53.9 Dorsopathy, unspecified
CPT/HCPCS: 71260; 74177; Q9967

== ENCOUNTER 2023-09-20 07:45 | Oncology outpatient (recurring) (ONCR) | payer MEDICARE, MEDICAID, SELFPAY ==
[2023-09-20 08:10] VITALS: BP 156/87; PULSE 97; RESP 16; TEMP 36.8; O2SAT 96
[2023-09-20 08:26] LABS: Basophils % 0.2 %; Eosinophils # 0.2 10^3/uL (0.0-0.8); Eosinophils % 1.9 %; Lymphocytes # 2.1 10^3/uL (0.8-4.8); Mean Corpuscular Hemoglobin 26.7 pg (27-33); Mean Corpuscular Volume 83.5 fl (85-98); Mean Platelet Volume 8.7 fL (7.4-10.4); Monocytes # 0.6 10^3/uL (0.2-0.9); Monocytes % 6.3 %; Neutrophils # 6.57 10^3/uL (1.8-7.7); Neutrophils % 69.4 %; Nucleated Red Blood Cells % 0 %; Platelet Count 454 10^3/cmm (157-399); Red Blood Count 5.87 10^6/uL (3.85-5.65); Red Cell Distribution Width 15.1 % (12.1-15.1); White Blood Count 9.47 10^3/uL (3.29-11.43)
[2023-09-20 08:49] LABS: Carcinoembryonic Antigen 7.1 ng/mL (0.0-4.7)
[2023-09-20 09:00] LABS: Alanine Aminotransferase 16 U/L (0-33); Albumin Level 4.2 g/dL (3.5-5.2); Alkaline Phosphatase 95 U/L (35-105); Anion Gap 16.1 (5-19); Aspartate Amino Transferase 14 U/L (0-32); Blood Urea Nitrogen 13 mg/dL (8-23); Calcium 10.1 mg/dL (8.5-10.5); Carbon Dioxide 28 mmol/L (22-29); Chloride 94 mmol/L (98-107); Glucose 202 mg/dL (65-115); Osmolality Calculated 284 mOsm/kg (285-295); Potassium 4.1 mmol/L (3.5-5.1); Sodium 134 mmol/L (136-145); Total Bilirubin 0.2 mg/dL (0.15-1.2); Total Protein 7.2 g/dL (6.6-8.7)
== END 2023-10-14 23:59 | disposition home or self-care (01) ==
PROVIDERS: PCP Nurse Practitioner Family; Visit Provider Internal Medicine Medical Oncology
DX: C18.2 Malignant neoplasm of ascending colon (principal); C78.1 Secondary malignant neoplasm of mediastinum; C79.31 Secondary malignant neoplasm of brain; C77.3 Secondary and unspecified malignant neoplasm of axilla and upper limb lymph nodes; D50.9 Iron deficiency anemia, unspecified; Z79.899 Other long term (current) drug therapy
CPT/HCPCS: 36415; 80053; 82378; 85025; 99214

== ENCOUNTER 2023-10-16 10:07 | Outpatient (CLI) | payer MEDICARE, MEDICAID, SELFPAY ==
--- NOTE | 2023-10-16 10:30 | PETR_ITS ---
PROCEDURE INFORMATION: Exam: PET/CT Skull Base to Mid-thigh Exam date and time: 10/16/2023 11:04 AM Age: 67 years old Clinical indication: Condition or disease; Primary cancer: Malignant neoplasm of cecum; Follow-up oncological assessment; Prior surgery; Surgery date: 6+ months; Surgery type: Hyst, colon; Additional info: Follow up LABS AND CLINICAL REPORTS: Glucose: 123 mg/dl Treatment strategy for malignancy (PET staging): Restaging (PS) TECHNIQUE: Imaging protocol: Following at least four-hour fasting and following the injection of radiopharmaceutical, low dose CT images were obtained. Then, PET images were obtained. Attenuation corrected images were constructed using the CT scan. Fused images of PET and CT were reviewed. The standardized uptake values (SUV) reported below are maximum values within a region of interest, expressed in gm/ml. Exam includes orbital meatal line to mid-thigh. Radiopharmaceutical: 11.52 mCi F-18 FDG (Fluorodeoxyglucose), IV. Time of imaging post radiopharmaceutical administration: 1 hour Injection site: Right antecubital COMPARISON: [facility] [place] [id number] 02/03/2023 11:24 AM FINDINGS: Brain: Visualized brain has normal physiologic uptake. Pharynx: No abnormal uptake. Larynx: No abnormal uptake. Lungs, pleura and trachea: Several new and enlarging metastatic nodules noted in the lungs. A reference lesion is a right lower lobe nodule previously measuring 0.8 x 0.8 cm on PET-CT dated 02/03/2023 today measuring 1.5 x 1.4 cm series 3 image 98 with max SUV measuring 2.0 previously measuring 1.3. Heart: Normal physiologic uptake. Mediastinal space: No abnormal uptake. Liver: No abnormal uptake. Gallbladder and bile ducts: No abnormal uptake. Pancreas: No abnormal uptake. Spleen: No abnormal uptake. Adrenal glands: No abnormal uptake. Kidneys and ureters: Normal physiologic uptake. Stomach and bowel: No abnormal uptake. Vasculature: No abnormal uptake. Lymph nodes: No abnormal uptake. No lymphadenopathy in the head, neck, chest, abdomen, pelvis, and extremities. Bones/joints: No abnormal uptake in the visualized axial and appendicular skeleton. Soft tissues: No significant interval change to a lobulated nodular soft tissue density in the right breast with central calcification measuring 1.9 x 1.8 cm. No significant FDG uptake with max SUV measuring 1.6, similar to background mediastinal uptake. PET/PET skulltothi SUBSEQ [id number] IMPRESSION: Disease progression with several new and enlarging metastatic lesions in the lungs.
== END 2023-10-16 10:08 | disposition home or self-care (01) ==
LOC: RAD 10:08
PROVIDERS: PCP Nurse Practitioner Family; Visit Provider Internal Medicine Medical Oncology
DX: C18.0 Malignant neoplasm of cecum (principal); C78.02 Secondary malignant neoplasm of left lung; C78.01 Secondary malignant neoplasm of right lung
CPT/HCPCS: 78815; A9552

== ENCOUNTER 2023-10-17 12:56 | Oncology outpatient (recurring) (ONCR) | payer MEDICARE, MEDICAID, SELFPAY ==
[2023-10-17 15:49] LABS: Basophils % 0.4 %; Eosinophils # 0.2 10^3/uL (0.0-0.8); Eosinophils % 2.5 %; Hematocrit 50.3 % (36-47); Lymphocytes # 2.7 10^3/uL (0.8-4.8); Lymphocytes % 30.2 %; Mean Corpuscular HGB Conc 32.6 g/dL (30-55); Mean Corpuscular Volume 82.9 fl (85-98); Mean Platelet Volume 9.1 fL (7.4-10.4); Monocytes # 0.7 10^3/uL (0.2-0.9); Monocytes % 8.2 %; Neutrophils # 5.27 10^3/uL (1.8-7.7); Neutrophils % 58.5 %; Nucleated Red Blood Cells % 0 %; Platelet Count 469 10^3/cmm (157-399); Red Blood Count 6.07 10^6/uL (3.85-5.65); Red Cell Distribution Width 14.8 % (12.1-15.1); White Blood Count 9.03 10^3/uL (3.29-11.43)
[2023-10-17 16:14] LABS: Alanine Aminotransferase 18 U/L (0-33); Albumin Level 4.2 g/dL (3.5-5.2); Alkaline Phosphatase 81 U/L (35-105); Anion Gap 16.9 (5-19); Aspartate Amino Transferase 14 U/L (0-32); Blood Urea Nitrogen 20 mg/dL (8-23); Calcium 9.8 mg/dL (8.5-10.5); Carbon Dioxide 27 mmol/L (22-29); Chloride 96 mmol/L (98-107); Ferritin 23 ng/mL (15-150); Globulin 3.5 g/dL (1.3-4.6); Glucose 181 mg/dL (65-115); Iron 68 ug/dL (37-145); Osmolality Calculated 289 mOsm/kg (285-295); Percent Saturation 18.7 % (20-50); Potassium 3.9 mmol/L (3.5-5.1); Sodium 136 mmol/L (136-145); Total Bilirubin 0.2 mg/dL (0.15-1.2); Total Iron Binding Capacity 363 mcg/dl; Total Protein 7.7 g/dL (6.6-8.7); Unsaturated Iron Binding 295 ug/dL (112-347)
== END 2023-11-14 23:59 | disposition home or self-care (01) ==
PROVIDERS: Nurse Practitioner Family; PCP Nurse Practitioner Family; Visit Provider Internal Medicine Medical Oncology
DX: C18.2 Malignant neoplasm of ascending colon (principal); C78.1 Secondary malignant neoplasm of mediastinum; C79.31 Secondary malignant neoplasm of brain; C77.3 Secondary and unspecified malignant neoplasm of axilla and upper limb lymph nodes; D50.9 Iron deficiency anemia, unspecified; Z79.899 Other long term (current) drug therapy
CPT/HCPCS: 36415; 80053; 82728; 83540; 83550; 85025; 99214

== ENCOUNTER 2023-12-26 08:15 | Oncology outpatient (recurring) (ONCR) | payer MEDICARE, MEDICAID, SELFPAY ==
[2023-12-26 08:20] LABS: Basophils % 0.3 %; Eosinophils # 0.5 10^3/uL (0.0-0.8); Eosinophils % 4.5 %; Hematocrit 47.1 % (36-47); Lymphocytes # 2.4 10^3/uL (0.8-4.8); Mean Corpuscular HGB Conc 32.7 g/dL (30-55); Mean Corpuscular Hemoglobin 26.5 pg (27-33); Mean Corpuscular Volume 81.1 fl (85-98); Mean Platelet Volume 8.3 fL (7.4-10.4); Monocytes # 0.7 10^3/uL (0.2-0.9); Monocytes % 6.3 %; Neutrophils % 67.5 %; Nucleated Red Blood Cells % 0 %; Platelet Count 515 10^3/cmm (157-399); Red Blood Count 5.81 10^6/uL (3.85-5.65); Red Cell Distribution Width 13.7 % (12.1-15.1); White Blood Count 11.27 10^3/uL (3.29-11.43)
[2023-12-26 09:04] LABS: Carcinoembryonic Antigen 6.8 ng/mL (0.0-4.7)
[2023-12-26 09:15] LABS: Alanine Aminotransferase 14 U/L (0-33); Albumin Level 3.9 g/dL (3.5-5.2); Alkaline Phosphatase 93 U/L (35-105); Anion Gap 18.4 (5-19); Aspartate Amino Transferase 13 U/L (0-32); Blood Urea Nitrogen 16 mg/dL (8-23); Calcium 9.4 mg/dL (8.5-10.5); Carbon Dioxide 27 mmol/L (22-29); Chloride 93 mmol/L (98-107); Creatinine Clr Calc Pharmacy 74.4395; Globulin 3.6 g/dL (1.3-4.6); Glucose 145 mg/dL (65-115); Osmolality Calculated 282 mOsm/kg (285-295); Potassium 4.4 mmol/L (3.5-5.1); Sodium 134 mmol/L (136-145); Total Bilirubin 0.2 mg/dL (0.15-1.2); Total Protein 7.5 g/dL (6.6-8.7)
== END 2024-01-13 23:59 | disposition home or self-care (01) ==
PROVIDERS: Internal Medicine; PCP Nurse Practitioner Family; Visit Provider Internal Medicine Medical Oncology
DX: Z90.49 Acquired absence of other specified parts of digestive tract; C18.0 Malignant neoplasm of cecum; C78.00 Secondary malignant neoplasm of unspecified lung; R00.2 Palpitations
CPT/HCPCS: 36415; 80053; 82378; 85025; 99215

== ENCOUNTER → 2024-01-02 09:19 | Outpatient (BNVA) | payer MEDICARE, MEDICAID, SELFPAY | PROVIDERS: PCP Nurse Practitioner Family; Referring Provider Internal Medicine; Visit Provider Surgery | DX: C18.9 Malignant neoplasm of colon, unspecified (principal); C78.00 Secondary malignant neoplasm of unspecified lung | CPT/HCPCS: 99204 ==

== ENCOUNTER 2024-01-08 10:49 | Day surgery (SDC) | payer MEDICARE, MEDICAID, SELFPAY ==
[2024-01-08] VITALS (7 sets, daily range): BP systolic 141–170; BP diastolic 63–86; PULSE 85–94; RESP 18; TEMP 36.1–36.5; O2SAT 90–95
--- NOTE | 2024-01-08 10:52 | XR_ITS ---
WS: [id number] Exam: XR chest 1V portable [id number] Date/Time of Exam: 01/08/2024 12:41 PM Reason For Exam: Postop mediport placement Comparison with outside chest radiograph dated 05/12/2022. Lungs are fully expanded. A 2.5 cm nodule visualized over the RIGHT midlung zone. Normal cardiomedias tinal silhouette. No pleural effusions. A LEFT subclavian port ends at the cavoatrial junction. Bony structures are intact. IMPRESSION: 1. 2.5 cm nodule in the mid RIGHT lung that may represent the patient's known pulmonary metastasis. 2. LEFT subclavian port ending at the cavoatrial junction.
--- NOTE | 2024-01-08 10:52 | SC_ITS ---
WS: [email or web address] INTRAOPERATIVE TECHNIQUE: 2 Spot fluoroscopic images for intraoperative purposes. FLUOROSCOPY TIME: 2.2 seconds CLINICAL INFORMATION: Mediport Placement COMPARISON: None. FINDINGS: LEFT portacatheter tip in the distal SVC. IMPRESSION: Images obtained for intraoperative purposes.
--- NOTE | 2024-01-08 11:22 | W.PM.OPSUD ---
Surgery/Procedure H&P Update DATE OF PROCEDURE: January 08, 2024 DATE H&P PERFORMED: 01/02/24 H&P UPDATE INFORMATION: I have reviewed H&P completed within last 30 days, I have examined patient prior to procedure and No changes to prior documentation PLANNED PROCEDURE: Operation Date: 01/08/24 13:00 Proposed Procedures p Portacath Placement(Not Applicable) - Cliff Lantigua DO
--- NOTE | 2024-01-08 11:28 | P.ANESASSM_ITS ---
Pre-Anesthetic Assessment Height/Weight: Height 1.7 m Weight 76.657 kg Temp Pulse Resp BP Pulse Ox O2 Del Method 97.0 F L 92 18 144/75 94 Room Air 01/08/24 11:02 01/08/24 11:02 01/08/24 11:02 01/08/24 11:02 01/08/24 11:02 01/08/24 11:03 Operation Date: 01/08/24 13:00 Proposed Procedures p Portacath Placement(Not Applicable) - Cliff Lantigua DO Familial anesthetic complications: None Was Beta Gopal taken within 24 hours: Yes Was Clonidine taken within 24 hours: N/A Last intake: Intake Last Liquid Date 01/07/24 Last Liquid Time 22:00 Last Solid Date 01/07/24 Last Solid Time 18:00 Social Tobacco (encouraged smoking cessation) and No alcohol Exam alert, oriented x 3, clear to auscultation bilaterally and regular rate & rhythm Airway Mallampati: Class II Dentition: false Pulmonary mets to lungs CV/HEM Hypertension GI Gastroesophageal Reflux Disease colon cancer mets Metabolic Diabetes Mellitus Anesthetic Plan ASA status: 4 Anesthesia: MAC Risk of > 500 ml blood loss (7ml/kg in children): No Medications/Allergies Home Medications Medication Instructions Recorded Confirmed Last Taken Type losartan 100 1 tab PO DAILY 02/04/20 01/07/24 01/07/24 History mg-hydrochlorothiazide 12.5 mg tablet metformin 500 mg tablet 1,000 mg PO BID 02/04/20 01/07/24 01/07/24 History metoprolol tartrate 25 mg tablet 25 mg PO DAILY 06/07/22 01/07/24 01/08/24 History potassium chloride 10 mEq 10 meq PO DAILY 06/07/22 01/07/24 01/07/24 History tablet,extended release(part/cryst) venlafaxine 75 mg tablet 150 mg PO DAILY 06/07/22 01/07/24 01/07/24 History omeprazole 40 mg capsule,delayed 40 mg PO DAILY 02/28/23 01/07/24 01/07/24 History release hydroxyzine HCl 25 mg tablet 25 mg PO DAILY 12/26/23 01/07/24 01/07/24 History Allergies Allergy/AdvReac Type Severity Reaction Status Date / Time morphine Allergy ALGY-Difficulty Verified 01/02/24 09:23 Breathing Penicillins Allergy ALGY-Difficulty Verified 01/02/24 09:23 Breathing [facility] Anesthesia Medical History 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 Colon cancer Depression History of positive PPD Hyperlipidemia Hypertension Type 2 diabetes mellitus Surgical History History of hysterectomy with bilateral oophorectomy History of tubal ligation History of right hemicolectomy Family History Mother CAD (coronary artery disease) Chronic kidney disease (CKD) Diabetes Father Lung disease Grandmother Stroke Other Cancer Hyperlipidemia Hypertension Suicide Denies family history of Clotting disorder Dementia Psychiatric illness Anesthesia complication Bleeding disorder Social History Smoking and tobacco/nicotine status: former use of tobacco/nicotine Quit status (tobacco/nicotine): has quit using Year quit tobacco: 2015 Former quit date comment: approx 30 years Alcohol intake: never Substance/Drug Use: never Caregiver/support person: No Lives independently: No Household members: spouse Current occupational status: employed Do you think of yourself as: Straight/Heterosexual Current gender identity: Female Data Anesthesia Cardiac Studies: No Data to Display
[2024-01-08] MEDS: sodium chloride 0.9% 1,000 ML 30 ML IV (11:33)
[2024-01-08] MEDS: vancomycin 1,000 MG in sodium chloride 0.9% 250 ML 250 MG IV (11:55)
[2024-01-08] MEDS: heparin, porcine 1,000 unit/mL INJ 10 mL 10000 UNIT IRRIGATION (12:21)
[2024-01-08] MEDS: lidocaine-epi 2% PF 1:200,000 20 mL SDV XX (12:22)
--- NOTE | 2024-01-08 12:32 | PM.OP ---
Operative Report Date of procedure: January 08, 2024 Pre-op diagnosis: Metastatic adenocarcinoma Post-op diagnosis: same Procedure done: Mediport placement Intraoperative interpretation of fluoroscopy Implants: PowerPort Specimens removed/disposition: None Surgeon: Cliff Lantigua DO Anesthesia: MAC and Local Estimated blood loss (mL): 5 Complications: None apparent Brief History: This very pleasant 68-year-old female who presented to my office with metastatic adenocarcinoma. Oncology requested Mediport placement for chemotherapy access. The risk and benefits were explained and documented. Procedure: They put another order I will do right now things the patient was taken to the operating room and placed supine on the operating room table. All bony prominences were padded. She was given IV sedation and monitored throughout the case by the anesthesia personnel. SCDs were placed and turned on. The arms were tucked to the side. Patient received Ancef 2 g preoperatively IV. The bilateral chest wall was prepped and draped in usual sterile fashion using chlorhexidine base prep. Sterile drapes were applied. We did procedure pause prior to beginning. An 18 gauge needle was placed in the left subclavian vein. Dark, nonpulsatile blood was aspirated. A guidewire was placed through the needle centrally toward the atrial/vena caval junction. Fluoroscopy visualized good placement. The needle was removed and the guidewire was clipped to the drape with a hemostat. Further local anesthetic was infiltrated in the soft tissues of the left chest wall and a #15 blade was used to make a horizontal skin incision. A subcutaneous Mediport pocket was created using Bovie cautery, dissecting down through the skin and subcutaneous tissues. Meticulous hemostasis was achieved. The Mediport was sutured in position using 3-0 vicryl suture x2 stitches. A #15 blade was used to make a small skin maday around the guidewire insertion area. The Mediport tubing was tunneled through the subcutaneous tissues up to the needle insertion location. A dilator with a peel-away sheath was placed over the guidewire and placed centrally. After measuring the Mediport tubing was cut to length so that the tip would end at the atrial/vena caval junction. The inner cannula and the guidewire were removed, leaving the dilator sheath in place. The Mediport was flushed. The tip of the catheter was inserted through the peel-away sheath and the peel-away sheath removed in the standard fashion. The Mediport was accessed with a straight Carmona needle and dark, nonpulsatile blood was aspirated and flushed using heparinized saline to hep-lock the Mediport. Final fluoroscopy visualization showed no kink in the catheter and the tip of the Mediport tubing near the atrial/vena caval junction. There was no obvious pneumothorax. Both skin incisions were thoroughly irrigated and suctioned dry. Meticulous hemostasis noted. The dermis was approximated with 3-0 Vicryl in an interrupted fashion. Skin was closed with Dermabond. Patient was awakened from anesthesia and transferred via her cart to the recovery room in stable condition. All needle, sponge, and instrument counts were correct per the operating personnel x2 counts.
--- NOTE | 2024-01-08 13:25 | ANE.PACU2 ---
Inpatient post-anesthesia follow up: Airway intact: Yes Vital signs: Temperature 97.7 F Pulse Rate 85 Respiratory Rate 18 Blood Pressure 168/70 Pulse Oximetry 90 Oxygen Delivery Me thod Room Air Oxygen Flow Rate Fraction of Inspir ed Oxygen Hydration adequate: Yes Nausea and vomiting: No Pain level: 1 Mental status: Baseline
[2024-01-09 05:25] LABS: Glucose Point of Care 133 mg/dL (70-110)
== END 2024-01-08 13:28 | disposition home or self-care (01) ==
PROVIDERS: PCP Nurse Practitioner Family; Visit Provider Surgery
PROC: (CPT 36561; principal; 2024-01-08 13:00)
DX: C18.9 Malignant neoplasm of colon, unspecified (principal); C78.00 Secondary malignant neoplasm of unspecified lung; Z90.49 Acquired absence of other specified parts of digestive tract; E11.9 Type 2 diabetes mellitus without complications; Z79.84 Long term (current) use of oral hypoglycemic drugs; F32.A Depression, unspecified; E78.5 Hyperlipidemia, unspecified; I10 Essential (primary) hypertension; Z87.891 Personal history of nicotine dependence
CPT/HCPCS: 36561; 36416; 71045; 77001; 82962; C1788; J1644; J3010; J3370; J7030; J7050

== ENCOUNTER 2024-01-11 14:15 | Outpatient (CLI) | payer MEDICARE, MEDICAID, SELFPAY ==
[2024-01-11] MEDS: iohexol 350 mg/mL 500 mL Btl (per mL) PO (15:14)
[2024-01-11] MEDS: iohexol 350 mg/mL 500 mL Btl (per mL) IV (15:14)
--- NOTE | 2024-01-11 15:30 | CT_ITS ---
WS: [id number] CT CHEST, ABDOMEN AND PELVIS WITH CONTRAST HISTORY: Staging colon cancer. Lung mets. TECHNIQUE: Contiguous 5 mm axial imaging performed through the chest, abdomen and pelvis with IV cont rast, oral contrast has been provided. Coronal and sagittal reformats chest. Coronal and sagittal ref ormats through the abdomen and pelvis. All CT scans at [facility] use at least one of these d ose optimization techniques: automated exposure control; mA and/or kV adjustment per patient size (in cludes targeted exams where dose is matched to clinical indication); or iterative reconstruction. CONTRAST: Omnipaque 350; 100 mL IV. DLP: 958.84 mGy.cm COMPARISON: 09/17/2023, PET/CT 10/16/[address]: Interval progression in size and number of the pulmonary nodules since 09/17/2023. The large st nodule continues to be in the RIGHT lower lobe measuring 2.0 x 1.7 cm. 1 new nodule identified in the RIGHT upper lobe. This nodule was seen on the PET/CT of 10/16/2023. The remaining nodules have incr eased slightly in size. No change in size of the mediastinal and hilar lymph nodes. No lymphadenopath y was identified by PET/CT. The largest lymph node is RIGHT hilar at 13 mm. Advanced atherosclerotic changes within the thoracic aorta. There is a large amount of plaque in the descending thoracic aorta. There is soft and noncalcified plaque. Normal size heart. Pulmonary artery is normal size. Reidentified is the mass with a central calcification in the RIGHT breast measuring 1.6 x 1.5 cm which has been described on multiple prior studies and was negative on the PET/CT. LEFT subclavian Port-A-Cath. Mild anterior wedging of T12. Abdomen CT: No hepatic or adrenal metastasis. There is a lobular thickened component of the LEFT adre nal gland which is similar to prior studies. Gallbladder is contracted. Negative spleen. Normal pancr eas. Extensive atherosclerotic plaque within the abdominal aorta. No renal obstruction or solid mass. Too small to characterize hypodensities are reidentified. Stomach is well distended with food products and oral contrast. No small bowel obstruction. Prior RIG HT hemicolectomy. No adenopathy or ascites. No omental carcinomatosis. Pelvic CT: No free fluid or ascites. IMPRESSION: 1. Interval progression of metastatic disease within the lungs. There is a single new nodule identif ied in the RIGHT upper lobe. The remaining nodules have all increased slightly in size. Largest nodul e in the RIGHT lower lobe measures 2.0 x 1.7 cm. Prior measurement on the most recent exam of 4 was 1.5 x 1.4 cm. 2. No mediastinal or hilar lymphadenopathy. Stable lymph nodes since the prior PET/CT. 3. Stable RIGHT breast mass. 4. Status post RIGHT hemicolectomy. 5. No abdominal pelvic adenopathy or ascites. 6. No metastatic disease to the liver or adrenal glands.
== END 2024-01-11 14:16 | disposition home or self-care (01) ==
LOC: RAD 14:15
PROVIDERS: PCP Nurse Practitioner Family; Visit Provider Internal Medicine
DX: C18.0 Malignant neoplasm of cecum (principal)
CPT/HCPCS: 71260; 74177; Q9967

== ENCOUNTER 2024-01-22 14:33 | Outpatient (CLI) | payer MEDICARE, MEDICAID, SELFPAY ==
--- NOTE | 2024-01-22 14:30 | USCV_ITS ---
Beth Alexander Age: 68 Gender: F : 1955 Exam Date: 01/22/2024 15:27 Ordering Phys: Neville Dhillon MD Technologist: KRIS [place] [facility] [place]ication: Beginning Chemo for Colon Cancer BP: / HR: 90 Rhythm: Sinus Technical Quality: Adequate MEASUREMENTS (Male / Female) Normal Values 2D ECHO LV Diastolic Diameter PLAX 3.6 cm 4.2 - 5.9 / 3.9 - 5.3 cm IVS Diastolic Thickness 1.5 cm 0.6 - 1.0 / 0.6 - 0.9 cm IVS Systolic Thickness 1.7 cm LVPW Diastolic Thickness 1.1 cm 0.6 - 1.0 / 0.6 - 0.9 cm LVPW Systolic Thickness 1.7 cm LVOT Diameter 2.0 cm LV Ejection Fraction 2D Teich 56.5 % LV Ejection Fraction MOD 2C 56.8 % LV Ejection Fraction 2C AL 62.3 % LA Diameter 3.0 cm RA Systolic Volume 4C AL 13.9 ml RA Systolic Volume 4C MOD 13.3 ml LA Sys Volume AL 17.7 cm cubed LA Sys Volume Index AL 9.2 cm cubed/m squared Aorta at Sinotubular Diameter 3.0 cm IVC Diameter 1.8 cm M-MODE LA Ao Ratio MM 1.1 AV Cusp Separation MM 1.7 cm DOPPLER AV Peak Velocity 132.0 cm/s LVOT Peak Velocity 59.0 cm/s AV Area Cont Eq vti 1.5 cm squared AV Area Cont Eq pk 1.4 cm squared TV Peak Velocity 103.5 cm/s TR Peak Velocity 104.0 cm/s TR Peak Gradient 4.3 mmHg TR Mean Velocity 75.0 cm/s TR Mean Gradient 2.6 mmHg TR Velocity Time Integral 22.2 cm TV Peak E Velocity 60.0 cm/s Right Atrial Pressure 3.0 mmHg Pulmonary Artery Systolic Pressu 7.3 mmHg PV Peak Velocity 93.0 cm/s RV Ejection Time 0.3 s FINDINGS Left Ventricle Normal left ventricular size and systolic function, EF 62%.mild left ventricular hypertrophy. No regional wall motion abnormalities. Right Ventricle The right ventricle is normal in size and function. Right Atrium The right atrium is normal in size. Left Atrium The left atrium is normal in size. Mitral Valve No gross abnormalities noted Aortic Valve No gross abnormalities noted Tricuspid Valve No gross abnormalities noted Pulmonic Valve No gross abnormalities noted Pericardium Normal pericardium without effusion. Aorta Normal ascending aorta dimension. IVC The inferior vena cava appears normal. CONCLUSIONS Normal left ventricular size and systolic function, EF 62%.mild left ventricular hypertrophy. No regional wall motion abnormalities. No gross valvular abnormalities. Normal cardiac chamber sizes NorThere is no pericardial effusion. There are no intracardiac masses. No similar previous studies are available for comparison Dr Elaine Saucedo MD FACC (Electronically Signed) Final Date: 23 January 2024 08:47 S
[2024-01-22] MEDS: gadobenate dimeglumine 20 mL vial IV (15:07)
--- NOTE | 2024-01-22 15:15 | MR_ITS ---
WS: [id number] MRI HEAD WITH CONTRAST TECHNIQUE: Sagittal T1, T2 axial, T2 axial FLAIR, axial susceptibility weighted imaging, axial diffus ion weighted images, and coronal T2 images were obtained. Pre and post-T1 axial and post T1 coronal i mages. ADC and FSPGR images. CLINICAL INFORMATION: restaging COMPARISON: Outside MRI 05/12/2022 FINDINGS: No evidence of restricted diffusion to suggest acute ischemia. Ventricular system and basal cisterns are patent. Minimal small vessel changes. Mild parenchymal volume loss. Normal posterior fossa. Winifred l vascular flow voids at the skull base. No extra-axial fluid collections. No evidence of mass or mas s effect. Paranasal sinuses and mastoid air cells are well aerated. Normal posterior nasopharynx. No hemosiderin on the susceptibility weighted images. Normal optic chiasm and pituitary infundibulum. Te mporal lobes and hippocampal formations are normal in appearance. No evidence of enhancing intracranial metastatic disease. Normal dural venous sinuses. IMPRESSION: 1. No evidence of enhancing intracranial metastatic disease. 2. No other acute findings.
== END 2024-01-22 14:34 | disposition home or self-care (01) ==
PROVIDERS: PCP Nurse Practitioner Family; Visit Provider Internal Medicine
DX: C18.0 Malignant neoplasm of cecum (principal)
CPT/HCPCS: 70553; 93306; A9577

== ENCOUNTER → 2024-01-25 08:22 | Outpatient (BNVA) | payer MEDICARE, MEDICAID, SELFPAY | PROVIDERS: PCP Nurse Practitioner Family; Visit Provider Surgery | DX: Z95.828 Presence of other vascular implants and grafts (principal) | CPT/HCPCS: 99214 ==

== ENCOUNTER 2024-01-30 12:00 | Oncology outpatient (recurring) (ONCR) | payer MEDICARE, MEDICAID, SELFPAY ==
[2024-01-14 08:08] LABS: Basophils # 0.1 10^3/uL (0.0-0.1); Basophils % 0.6 %; Eosinophils # 0.8 10^3/uL (0.0-0.8); Eosinophils % 10.7 %; Hematocrit 44.8 % (36-47); Lymphocytes # 1.9 10^3/uL (0.8-4.8); Lymphocytes % 23.9 %; Mean Corpuscular HGB Conc 32.6 g/dL (30-55); Mean Corpuscular Hemoglobin 26.2 pg (27-33); Mean Corpuscular Volume 80.4 fl (85-98); Mean Platelet Volume 8.9 fL (7.4-10.4); Monocytes # 0.6 10^3/uL (0.2-0.9); Monocytes % 7.5 %; Neutrophils # 4.35 10^3/uL (1.8-7.7); Neutrophils % 56.4 %; Nucleated Red Blood Cells % 0 %; Platelet Count 292 10^3/cmm (157-399); Red Blood Count 5.57 10^6/uL (3.85-5.65); Red Cell Distribution Width 14.4 % (12.1-15.1); White Blood Count 7.73 10^3/uL (3.29-11.43)
[2024-01-14 08:38] LABS: Carcinoembryonic Antigen 7.6 ng/mL (0.0-4.7)
[2024-01-14 08:51] LABS: Alanine Aminotransferase 14 U/L (0-33); Alkaline Phosphatase 78 U/L (35-105); Anion Gap 15.7 (5-19); Aspartate Amino Transferase 15 U/L (0-32); Blood Urea Nitrogen 12 mg/dL (8-23); Calcium 9.1 mg/dL (8.5-10.5); Carbon Dioxide 26 mmol/L (22-29); Chloride 94 mmol/L (98-107); Creatinine Clr Calc Pharmacy 74.3404; Globulin 2.8 g/dL (1.3-4.6); Glomerular Filtration Rate 83.7 mL/min (90-130); Glucose 189 mg/dL (65-115); Osmolality Calculated 279 mOsm/kg (285-295); Potassium 3.7 mmol/L (3.5-5.1); Sodium 132 mmol/L (136-145); Total Bilirubin 0.2 mg/dL (0.15-1.2); Total Protein 6.8 g/dL (6.6-8.7)
[2024-01-14] MEDS: palonosetron 0.25 mg/5 mL SDV IVP (10:55)
[2024-01-14] MEDS: dextrose 5% 250 ML 75 ML IV (10:55)
[2024-01-14 10:58] LABS: Add Urine Microscopic? NO; Charge for UA Resulting for Rev
[2024-01-14 11:14] LABS: Urine Appearance Clear (CLEAR); Urine Color Yellow (Yellow); pH Urine 8 (5-7)
[2024-01-14 11:15] LABS: Bilirubin Urine Neg (Negative); Blood Urine Neg (Negative); Glucose Urine UA Norm (Normal); Ketones Urine Negative (Negative); Leukocyte Esterase Urine Negative (Negative); Nitrate Urine Negative (Negative); Protein Urine Neg (Negative); Sulfosalicylic Acid Urine Negative (Negative); Urobilinogen Urine Norm (Negative)
[2024-01-14] MEDS: bevacizumab-awwb 390 MG in sodium chloride 0.9% (100 ml) 100 ML 75 MG IV (11:30)
[2024-01-14] MEDS: sodium chloride 0.9% 250 ML 75 ML IV (11:30)
[2024-01-14] MEDS: leucovorin 760 MG in dextrose 5% 250 ML 62.5 MG IV (13:17)
[2024-01-14] MEDS: oxaliplatin 100 MG, oxaliplatin 60 MG in dextrose 5% 250 ML 141 MG IV (13:17)
[2024-01-14] MEDS: SODIUM CHLORIDE IV (15:42)
[2024-01-14] MEDS: FLUOROURACIL IV (15:42)
[2024-01-14] MEDS: ELASTOMERIC PUMP PUMP IV (15:42)
[2024-01-14 15:51] VITALS: BP 182/93; PULSE 103; RESP 18; O2SAT 93
[2024-01-22 14:37] LABS: Basophils % 0.3 %; Eosinophils # 0.4 10^3/uL (0.0-0.8); Eosinophils % 4.5 %; Hematocrit 44.8 % (36-47); Lymphocytes # 2.6 10^3/uL (0.8-4.8); Lymphocytes % 29.8 %; Mean Corpuscular Hemoglobin 26.4 pg (27-33); Mean Platelet Volume 8.4 fL (7.4-10.4); Monocytes # 0.5 10^3/uL (0.2-0.9); Monocytes % 5.9 %; Neutrophils # 5.22 10^3/uL (1.8-7.7); Neutrophils % 59.2 %; Nucleated Red Blood Cells % 0 %; Platelet Count 314 10^3/cmm (157-399); Red Cell Distribution Width 14.1 % (12.1-15.1); White Blood Count 8.83 10^3/uL (3.29-11.43)
[2024-01-22 14:54] LABS: Alanine Aminotransferase 17 U/L (0-33); Alkaline Phosphatase 69 U/L (35-105); Anion Gap 15.7 (5-19); Aspartate Amino Transferase 15 U/L (0-32); Blood Urea Nitrogen 13 mg/dL (8-23); Carbon Dioxide 25 mmol/L (22-29); Chloride 94 mmol/L (98-107); Creatinine Clr Calc Pharmacy 74.2412; Globulin 2.8 g/dL (1.3-4.6); Glomerular Filtration Rate 83.7 mL/min (90-130); Glucose 285 mg/dL (65-115); Osmolality Calculated 282 mOsm/kg (285-295); Potassium 3.7 mmol/L (3.5-5.1); Sodium 131 mmol/L (136-145); Total Bilirubin 0.2 mg/dL (0.15-1.2); Total Protein 6.8 g/dL (6.6-8.7)
[2024-01-28 09:21] LABS: Add Urine Microscopic? NO; Charge for UA Resulting for Rev
[2024-01-28 09:27] LABS: Basophils % 0.3 %; Eosinophils # 0.4 10^3/uL (0.0-0.8); Eosinophils % 4.1 %; Hematocrit 46.3 % (36-47); Lymphocytes # 2.1 10^3/uL (0.8-4.8); Lymphocytes % 23.3 %; Mean Corpuscular HGB Conc 32.6 g/dL (30-55); Mean Corpuscular Hemoglobin 26.8 pg (27-33); Mean Corpuscular Volume 82.1 fl (85-98); Mean Platelet Volume 8.7 fL (7.4-10.4); Monocytes # 0.6 10^3/uL (0.2-0.9); Monocytes % 6.3 %; Neutrophils # 5.95 10^3/uL (1.8-7.7); Neutrophils % 65.6 %; Nucleated Red Blood Cells % 0 %; Platelet Count 379 10^3/cmm (157-399); Red Blood Count 5.64 10^6/uL (3.85-5.65); Red Cell Distribution Width 14.7 % (12.1-15.1); White Blood Count 9.07 10^3/uL (3.29-11.43)
[2024-01-28 09:39] LABS: Alanine Aminotransferase 18 U/L (0-33); Albumin Level 4.1 g/dL (3.5-5.2); Alkaline Phosphatase 80 U/L (35-105); Anion Gap 14.8 (5-19); Aspartate Amino Transferase 16 U/L (0-32); Blood Urea Nitrogen 15 mg/dL (8-23); Carbon Dioxide 26 mmol/L (22-29); Chloride 98 mmol/L (98-107); Creatinine Clr Calc Pharmacy 74.2412; Glomerular Filtration Rate 83.7 mL/min (90-130); Glucose 164 mg/dL (65-115); Osmolality Calculated 284 mOsm/kg (285-295); Potassium 3.8 mmol/L (3.5-5.1); Sodium 135 mmol/L (136-145); Total Bilirubin 0.2 mg/dL (0.15-1.2); Total Protein 7.1 g/dL (6.6-8.7)
[2024-01-28 09:42] LABS: Bilirubin Urine Neg (Negative); Blood Urine Neg (Negative); Glucose Urine UA Norm (Normal); Ketones Urine Negative (Negative); Leukocyte Esterase Urine Negative (Negative); Nitrate Urine Negative (Negative); Protein Urine Neg (Negative); Specific Gravity, Urine 1.005 (1.005-1.030); Urine Appearance Clear (CLEAR); Urine Color Yellow (Yellow); Urobilinogen Urine Norm (Negative); pH Urine 7 (5-7)
[2024-01-28] MEDS: sodium chloride 0.9% 250 ML 75 ML IV (10:59)
[2024-01-28] MEDS: palonosetron 0.25 mg/5 mL SDV IVP (11:02)
[2024-01-28] MEDS: bevacizumab-awwb 390 MG in sodium chloride 0.9% (100 ml) 100 ML 135 MG IV (11:25)
[2024-01-28] MEDS: dextrose 5% 250 ML 100 ML IV (12:37)
[2024-01-28] MEDS: leucovorin 760 MG in dextrose 5% 250 ML 62.5 MG IV (12:38)
[2024-01-28] MEDS: oxaliplatin 100 MG, oxaliplatin 60 MG in dextrose 5% 250 ML 141 MG IV (12:38)
[2024-01-28 14:48] VITALS: BP 168/78; PULSE 94; TEMP 36.3; O2SAT 93
[2024-01-28] MEDS: FLEXIBLE CONTAINER IV (14:50)
[2024-01-28] MEDS: FLUOROURACIL IV (14:50)
== END 2024-01-30 23:59 | disposition home or self-care (01) ==
PROVIDERS: Internal Medicine; Nurse Practitioner Family; PCP Nurse Practitioner Family; Visit Provider Internal Medicine Medical Oncology
DX: Z45.1 Encounter for adjustment and management of infusion pump; Z53.9 Procedure and treatment not carried out, unspecified reason
CPT/HCPCS: 36591; 70553; 80053; 81003; 82378; 85025; 93306; 96367; 96368; 96375; 96413; 96415; 96416; 96417; 96523; 99214; A9577; J0640; J1100; J2469; J7050; J7060; J9190; J9263; Q5107

== ENCOUNTER 2024-02-11 07:47 | Oncology outpatient (recurring) (ONCR) | payer MEDICARE, MEDICAID, SELFPAY ==
[2024-02-11 08:13] LABS: Basophils % 0.4 %; Eosinophils # 0.3 10^3/uL (0.0-0.8); Eosinophils % 3.7 %; Hematocrit 46.3 % (36-47); Lymphocytes # 1.7 10^3/uL (0.8-4.8); Lymphocytes % 24.4 %; Mean Corpuscular HGB Conc 32.6 g/dL (30-55); Mean Corpuscular Hemoglobin 26.8 pg (27-33); Mean Corpuscular Volume 82.2 fl (85-98); Mean Platelet Volume 8.5 fL (7.4-10.4); Monocytes # 0.7 10^3/uL (0.2-0.9); Monocytes % 10.6 %; Neutrophils # 4.24 10^3/uL (1.8-7.7); Neutrophils % 60.6 %; Nucleated Red Blood Cells % 0 %; Platelet Count 303 10^3/cmm (157-399); Red Blood Count 5.63 10^6/uL (3.85-5.65); Red Cell Distribution Width 16.3 % (12.1-15.1)
[2024-02-11 08:38] LABS: Carcinoembryonic Antigen 11.2 ng/mL (0.0-4.7)
[2024-02-11 08:49] LABS: Alanine Aminotransferase 18 U/L (0-33); Alkaline Phosphatase 73 U/L (35-105); Aspartate Amino Transferase 15 U/L (0-32); Blood Urea Nitrogen 14 mg/dL (8-23); Calcium 9.4 mg/dL (8.5-10.5); Carbon Dioxide 23 mmol/L (22-29); Chloride 99 mmol/L (98-107); Globulin 2.9 g/dL (1.3-4.6); Glomerular Filtration Rate 83.7 mL/min (90-130); Glucose 188 mg/dL (65-115); Osmolality Calculated 285 mOsm/kg (285-295); Sodium 135 mmol/L (136-145); Total Bilirubin 0.2 mg/dL (0.15-1.2); Total Protein 6.9 g/dL (6.6-8.7)
[2024-02-11 08:54] LABS: Anion Gap 17.4 (5-19); Potassium 4.4 mmol/L (3.5-5.1)
[2024-02-11] MEDS: sodium chloride 0.9% 250 ML 75 ML IV (09:49)
[2024-02-11] MEDS: palonosetron 0.25 mg/5 mL SDV IVP (09:50)
[2024-02-11] MEDS: bevacizumab-awwb 390 MG in sodium chloride 0.9% (100 ml) 100 ML 300 MG IV (10:20)
[2024-02-11] MEDS: dextrose 5% 250 ML 75 ML IV (11:15)
[2024-02-11] MEDS: leucovorin 760 MG in dextrose 5% 250 ML 62.5 MG IV (11:16)
[2024-02-11] MEDS: oxaliplatin 100 MG, oxaliplatin 60 MG in dextrose 5% 250 ML 141 MG IV (11:16)
[2024-02-11] MEDS: fluorouraciL 4,550 MG in elastomeric pump 1 PUMP 1.97999999999999998 MG IV (13:31)
[2024-02-11 13:35] VITALS: BP 158/75; PULSE 90; RESP 16; TEMP 36.3; O2SAT 91
== END 2024-02-12 23:59 | disposition home or self-care (01) ==
PROVIDERS: Nurse Practitioner Family; PCP Nurse Practitioner Family; Visit Provider Internal Medicine Medical Oncology
DX: C18.0 Malignant neoplasm of cecum; Z79.899 Other long term (current) drug therapy; Z53.9 Procedure and treatment not carried out, unspecified reason; Z51.11 Encounter for antineoplastic chemotherapy; C78.00 Secondary malignant neoplasm of unspecified lung
CPT/HCPCS: 80053; 82378; 85025; 96367; 96368; 96375; 96413; 96415; 96416; 96417; 99214; J0640; J1100; J2469; J7050; J7060; J9190; J9263; Q5107

== ENCOUNTER 2024-03-11 09:30 | Oncology outpatient (recurring) (ONCR) | payer MEDICARE, MEDICAID, SELFPAY ==
[2024-02-25 08:47] LABS: Basophils % 0.5 %; Eosinophils # 0.2 10^3/uL (0.0-0.8); Eosinophils % 2.9 %; Lymphocytes % 25.1 %; Mean Corpuscular HGB Conc 32.8 g/dL (30-55); Mean Corpuscular Volume 82.5 fl (85-98); Mean Platelet Volume 8.3 fL (7.4-10.4); Monocytes # 0.8 10^3/uL (0.2-0.9); Monocytes % 10.5 %; Neutrophils # 4.74 10^3/uL (1.8-7.7); Neutrophils % 60.9 %; Nucleated Red Blood Cells % 0 %; Platelet Count 226 10^3/cmm (157-399); Red Cell Distribution Width 17.6 % (12.1-15.1)
[2024-02-25 09:11] LABS: Carcinoembryonic Antigen 10.9 ng/mL (0.0-4.7)
[2024-02-25 09:23] LABS: Alanine Aminotransferase 20 U/L (0-33); Alkaline Phosphatase 78 U/L (35-105); Aspartate Amino Transferase 17 U/L (0-32); Blood Urea Nitrogen 13 mg/dL (8-23); Calcium 9.5 mg/dL (8.5-10.5); Carbon Dioxide 22 mmol/L (22-29); Chloride 98 mmol/L (98-107); Globulin 3.1 g/dL (1.3-4.6); Glomerular Filtration Rate 83.7 mL/min (90-130); Glucose 157 mg/dL (65-115); Osmolality Calculated 279 mOsm/kg (285-295); Sodium 133 mmol/L (136-145); Total Bilirubin 0.2 mg/dL (0.15-1.2); Total Protein 7.1 g/dL (6.6-8.7)
[2024-02-25] MEDS: sodium chloride 0.9% 250 ML 75 ML IV (10:28)
[2024-02-25] MEDS: palonosetron 0.25 mg/5 mL SDV IVP (10:34)
[2024-02-25] MEDS: bevacizumab-awwb 390 MG in sodium chloride 0.9% (100 ml) 100 ML 230 MG IV (11:06)
[2024-02-25] MEDS: dextrose 5% 250 ML 75 ML IV (11:59)
[2024-02-25] MEDS: leucovorin 760 MG in dextrose 5% 250 ML 62.5 MG IV (12:00)
[2024-02-25] MEDS: oxaliplatin 100 MG, oxaliplatin 60 MG in dextrose 5% 250 ML 141 MG IV (12:00)
[2024-02-25 12:43] LABS: Add Urine Microscopic? NO; Charge for UA Resulting for Rev
[2024-02-25 12:47] LABS: Urine Appearance Clear (CLEAR); Urine Color Yellow (Yellow)
[2024-02-25 12:48] LABS: Bilirubin Urine Neg (Negative); Blood Urine Neg (Negative); Glucose Urine UA Norm (Normal); Ketones Urine 2+ (Negative); Leukocyte Esterase Urine Negative (Negative); Nitrate Urine Negative (Negative); Protein Urine Neg (Negative); Urobilinogen Urine Norm (Negative); pH Urine 6 (5-7)
[2024-02-25] MEDS: fluorouraciL 4,550 MG in elastomeric pump 1 PUMP 1.97999999999999998 MG IV (14:11)
[2024-02-25 14:15] VITALS: BP 172/89; PULSE 85; RESP 16; TEMP 36.6; O2SAT 91
[2024-03-11 08:22] LABS: Basophils % 0.4 %; Eosinophils # 0.2 10^3/uL (0.0-0.8); Eosinophils % 3.5 %; Hematocrit 45.2 % (36-47); Lymphocytes # 1.5 10^3/uL (0.8-4.8); Lymphocytes % 26.6 %; Mean Corpuscular HGB Conc 32.7 g/dL (30-55); Mean Corpuscular Hemoglobin 27.5 pg (27-33); Mean Corpuscular Volume 83.9 fl (85-98); Mean Platelet Volume 8.7 fL (7.4-10.4); Monocytes # 0.6 10^3/uL (0.2-0.9); Monocytes % 10.9 %; Neutrophils # 3.32 10^3/uL (1.8-7.7); Neutrophils % 58.4 %; Nucleated Red Blood Cells % 0 %; Platelet Count 238 10^3/cmm (157-399); Red Blood Count 5.39 10^6/uL (3.85-5.65); Red Cell Distribution Width 18.1 % (12.1-15.1); White Blood Count 5.68 10^3/uL (3.29-11.43)
[2024-03-11 08:55] LABS: Carcinoembryonic Antigen 11.1 ng/mL (0.0-4.7)
[2024-03-11 09:06] LABS: Alanine Aminotransferase 15 U/L (0-33); Albumin Level 3.8 g/dL (3.5-5.2); Alkaline Phosphatase 74 U/L (35-105); Aspartate Amino Transferase 14 U/L (0-32); Blood Urea Nitrogen 11 mg/dL (8-23); Calcium 8.7 mg/dL (8.5-10.5); Carbon Dioxide 24 mmol/L (22-29); Chloride 102 mmol/L (98-107); Creatinine Clr Calc Pharmacy 73.6965; Globulin 2.9 g/dL (1.3-4.6); Glomerular Filtration Rate 83.7 mL/min (90-130); Glucose 176 mg/dL (65-115); Osmolality Calculated 290 mOsm/kg (285-295); Sodium 138 mmol/L (136-145); Total Bilirubin 0.2 mg/dL (0.15-1.2); Total Protein 6.7 g/dL (6.6-8.7)
[2024-03-11] MEDS: sodium chloride 0.9% 250 ML 75 ML IV (10:10)
[2024-03-11] MEDS: palonosetron 0.25 mg/5 mL SDV IVP (10:11)
[2024-03-11] MEDS: bevacizumab-awwb 390 MG in sodium chloride 0.9% (100 ml) 100 ML 230 MG IV (10:59)
[2024-03-11] MEDS: dextrose 5% 250 ML 50 ML IV (11:51)
[2024-03-11] MEDS: leucovorin 760 MG in dextrose 5% 250 ML 62.5 MG IV (11:51)
[2024-03-11] MEDS: oxaliplatin 100 MG, oxaliplatin 60 MG in dextrose 5% 250 ML 141 MG IV (11:52)
[2024-03-11] MEDS: fluorouraciL 4,550 MG, elastomeric pump 1 PUMP in sodium chloride 0.9% (100 ml) 1 ML IV (14:17)
[2024-03-11 14:25] VITALS: BP 184/90; PULSE 98; RESP 16; TEMP 36.5; O2SAT 91
== END 2024-03-14 23:59 | disposition home or self-care (01) ==
PROVIDERS: Nurse Practitioner Family; PCP Nurse Practitioner Family; Visit Provider Internal Medicine Medical Oncology
DX: Z53.9 Procedure and treatment not carried out, unspecified reason (principal); Z79.52 Long term (current) use of systemic steroids; C18.0 Malignant neoplasm of cecum; C78.00 Secondary malignant neoplasm of unspecified lung; C18.9 Malignant neoplasm of colon, unspecified; Z51.12 Encounter for antineoplastic immunotherapy; Z51.11 Encounter for antineoplastic chemotherapy; Z79.899 Other long term (current) drug therapy
CPT/HCPCS: 80053; 81003; 82378; 85025; 96367; 96368; 96375; 96413; 96415; 96416; 96417; 99214; J0640; J1100; J2469; J7050; J7060; J9190; J9263; Q5107

== ENCOUNTER → 2024-03-28 08:20 | Outpatient (BNVA) | payer MEDICARE, MEDICAID, SELFPAY | PROVIDERS: PCP Nurse Practitioner Family; Visit Provider Internal Medicine | DX: R00.2 Palpitations (principal) | CPT/HCPCS: 93005; 99214 ==

== ENCOUNTER 2024-04-07 07:30 | Oncology outpatient (recurring) (ONCR) | payer MEDICARE, MEDICAID, SELFPAY ==
[2024-03-25 08:09] LABS: Basophils % 0.3 %; Eosinophils # 0.1 10^3/uL (0.0-0.8); Eosinophils % 1.7 %; Hematocrit 46.6 % (36-47); Lymphocytes # 2.2 10^3/uL (0.8-4.8); Lymphocytes % 31.5 %; Mean Corpuscular HGB Conc 32.6 g/dL (30-55); Mean Corpuscular Hemoglobin 27.5 pg (27-33); Mean Corpuscular Volume 84.3 fl (85-98); Mean Platelet Volume 8.7 fL (7.4-10.4); Monocytes # 0.8 10^3/uL (0.2-0.9); Monocytes % 10.6 %; Neutrophils # 3.94 10^3/uL (1.8-7.7); Neutrophils % 55.6 %; Nucleated Red Blood Cells % 0 %; Platelet Count 249 10^3/cmm (157-399); Red Blood Count 5.53 10^6/uL (3.85-5.65); Red Cell Distribution Width 18.6 % (12.1-15.1); White Blood Count 7.08 10^3/uL (3.29-11.43)
[2024-03-25 08:50] LABS: Alanine Aminotransferase 15 U/L (0-33); Alkaline Phosphatase 84 U/L (35-105); Blood Urea Nitrogen 19 mg/dL (8-23); Calcium 9.7 mg/dL (8.5-10.5); Carbon Dioxide 26 mmol/L (22-29); Chloride 99 mmol/L (98-107); Creatinine Clr Calc Pharmacy 73.9071; Glomerular Filtration Rate 83.7 mL/min (90-130); Glucose 137 mg/dL (65-115); Osmolality Calculated 288 mOsm/kg (285-295); Sodium 137 mmol/L (136-145); Total Bilirubin 0.2 mg/dL (0.15-1.2)
[2024-03-25 08:51] LABS: Anion Gap 16.2 (5-19); Potassium 4.2 mmol/L (3.5-5.1)
[2024-03-25 08:52] LABS: Aspartate Amino Transferase 16 U/L (0-32)
[2024-03-25 11:36] VITALS: BP 153/83; PULSE 74; RESP 16; TEMP 36.6; O2SAT 94
[2024-03-25] MEDS: sodium chloride 0.9% 250 ML 75 ML IV (11:40)
[2024-03-25] MEDS: palonosetron 0.25 mg/5 mL SDV IVP (11:43)
[2024-03-25] MEDS: bevacizumab-awwb 390 MG in sodium chloride 0.9% (100 ml) 100 ML 230 MG IV (12:38)
[2024-03-25] MEDS: iohexol 350 mg/mL 500 mL Btl (per mL) IV (13:34)
[2024-03-25] MEDS: iohexol 350 mg/mL 500 mL Btl (per mL) PO (13:34)
[2024-03-25] MEDS: dextrose 5% 250 ML 75 ML IV (13:35)
[2024-03-25] MEDS: leucovorin 760 MG in dextrose 5% 250 ML 62.5 MG IV (13:35)
[2024-03-25] MEDS: oxaliplatin 100 MG, oxaliplatin 40 MG in dextrose 5% 250 ML 139 MG IV (13:36)
--- NOTE | 2024-03-25 14:00 | CTR_ITS ---
PROCEDURE INFORMATION: Exam: CT Chest With Contrast; Diagnostic Exam date and time: 03/25/2024 9:33 AM Age: 68 years old Clinical indication: Condition or disease; Prior surgery; Surgery date: 6+ months; Surgery type: Port hyst; Patient HX: Colon cancer with lung mets; Additional info: Restaging; Increasing signatera TECHNIQUE: Imaging protocol: Diagnostic computed tomography of the chest with contrast. Radiation optimization: All CT scans at this facility use at least one of these dose optimization techniques: automated exposure control; mA and/or kV adjustment per patient size (includes targeted exams where dose is matched to clinical indication); or iterative reconstruction. Contrast material: OMNI 350; Contrast volume: 100 ml; Contrast route: INTRAVENOUS (IV); COMPARISON: CT chest abdpel w/*[id number] 01/11/2024 3:33 PM RADIATION DOSE METRICS: Total DLP (mGy-cm): 885.21 FINDINGS: Tubes, catheters and devices: Left infusion port catheter with tip in the SVC. Thyroid: The thyroid gland is normal. Trachea: The airways are patent. Lungs: Decreased size of known metastatic lung nodules. For example: 1.7 cm nodule right lower lobe, prior 2 cm; 7 mm nodule right middle lobe, prior 9 mm; 8 mm nodule left upper lobe, prior 1.1 cm; 1.4 cm cavitary nodule left lower lobe, prior completely solid and 1.7 cm. No new lung nodules. No consolidations. Pleural spaces: No pleural effusions or pneumothorax. Heart: Heart is of normal size and morphology. There is calcification of the aortic valve annulus. No pericardial thickening or effusion. Mediastinal space: The mediastinal contour is normal. Lymph nodes: No concerning adenopathy. Vasculature: The aorta demonstrates moderate atherosclerotic calcification. Severe atherosclerotic plaque in the descending thoracic aorta with several plaque ulcerations present. No evidence for a penetrating atherosclerotic ulcer. Stable moderate to severe stenosis of the proximal left subclavian artery, due to atherosclerotic plaque. No aortic aneurysms. No acute pathology in the aorta. The pulmonary arteries are normal in course and caliber. Bones/joints: Moderate multilevel degenerative changes of the spine, as manifested by multilevel anterior osteophytes and multilevel decrease in intervertebral disc space. No acute skeletal abnormality or aggressive osseous lesion. Soft tissues: Stable 1.6 cm x 2 cm right breast nodule with punctate central calcification. No acute body wall soft tissue findings. PROCEDURE INFORMATION: Exam: CT Abdomen And Pelvis With Contrast Exam date and time: 03/25/2024 9:33 AM Age: 68 years old Clinical indication: Condition or disease; Prior surgery; Surgery date: 6+ months; Surgery type: Port hyst; Patient HX: Colon cancer with lung mets; Additional info: Restaging; Increasing signatera TECHNIQUE: Imaging protocol: Computed tomography of the abdomen and pelvis with contrast. Radiation optimization: All CT scans at this facility use at least one of these dose optimization techniques: automated exposure control; mA and/or kV adjustment per patient size (includes targeted exams where dose is matched to clinical indication); or iterative reconstruction. Contrast material: OMNI 350; Contrast volume: 100 ml; Contrast route: INTRAVENOUS (IV); COMPARISON: CT chest abdpel w/*[id number] 01/11/2024 3:33 PM RADIATION DOSE METRICS: Total DLP (mGy-cm): 885.21 FINDINGS: Liver: Liver is enlarged measuring 19 cm. There is a diffuse decrease in hepatic parenchymal density, consistent with fatty infiltration. The liver is otherwise unremarkable. Gallbladder and bile ducts: The gallbladder is contracted. There is no evidence of biliary ductal dilation. Pancreas: The pancreas is normal. Spleen: The spleen demonstrates punctate calcifications, consistent with remote granulomatous organism exposure. The spleen is otherwise unremarkable. Adrenal glands: The adrenal glands are normal. Kidneys and ureters: Subcentimeter right renal hypodense lesions are too small to characterize but most probably benign representing cysts. Consider correlation with nonemergent ultrasound. Subcentimeter left renal hypodense lesions are too small to characterize but most probably benign representing cysts. Consider correlation with nonemergent ultrasound. The kidneys are otherwise unremarkable. The ureters are normal. Stomach and bowel: Right hemicolectomy without complications. No bowel obstruction or significant bowel wall thickening. Appendix: No evidence of appendicitis. Intraperitoneal space: No free fluid, fluid collections, or pneumoperitoneum. Vasculature: The arterial vasculature demonstrates diffuse marked atherosclerotic calcification. Ectasia infrarenal abdominal aorta of up to 2.8 cm. Portal venous system is patent. Lymph nodes: There is no evidence of lymphadenopathy. Urinary bladder: The bladder is decompressed. Reproductive: There has been a hysterectomy. Bones/joints: Moderate multilevel degenerative changes of the spine, as manifested by multilevel anterior osteophytes and multilevel decrease in intervertebral disc space. No acute skeletal abnormality or aggressive osseous lesion. Soft tissues: No acute body wall soft tissue findings. CT/CT chest abdpel w/*[id number] IMPRESSION: 1. Improvement in lung metastasis, evidenced by decreased size of pulmonary nodules. 2. Remainder of the chest is stable. IMPRESSION: 1. No disease recurrence or metastasis in the abdomen/pelvis. 2. Hepatomegaly. 3. Hepatic steatosis. COMMENTS: Consistent with the [employer]'s Incidental Findings Committee white paper (J Am Moo Radiol 2018): Any incidental renal lesion less than 1 cm or classified as too small to characterize, or any incidental cystic renal lesion characterized as simple-appearing, is likely benign. No follow-up imaging is recommended for these lesions per consensus recommendations based on imaging criteria.
[2024-03-25 15:45] VITALS: BP 163/88; PULSE 90; TEMP 36.4; O2SAT 91
[2024-03-25] MEDS: fluorouraciL 4,550 MG in elastomeric pump 1 PUMP 1.97999999999999998 MG IV (15:46)
[2024-04-07] MEDS: alteplase 1 mg/mL SDV 2 mL 2 MG INTRACATH (07:52)
[2024-04-07 08:00] LABS: Basophils % 0.3 %; Eosinophils # 0.1 10^3/uL (0.0-0.8); Eosinophils % 1.8 %; Hematocrit 45.5 % (36-47); Lymphocytes # 1.8 10^3/uL (0.8-4.8); Lymphocytes % 26.7 %; Mean Corpuscular HGB Conc 32.7 g/dL (30-55); Mean Corpuscular Hemoglobin 27.7 pg (27-33); Mean Corpuscular Volume 84.6 fl (85-98); Mean Platelet Volume 8.7 fL (7.4-10.4); Monocytes # 0.7 10^3/uL (0.2-0.9); Monocytes % 10.7 %; Neutrophils # 4.07 10^3/uL (1.8-7.7); Neutrophils % 60.4 %; Nucleated Red Blood Cells % 0 %; Platelet Count 252 10^3/cmm (157-399); Red Blood Count 5.38 10^6/uL (3.85-5.65); Red Cell Distribution Width 19.5 % (12.1-15.1); White Blood Count 6.74 10^3/uL (3.29-11.43)
[2024-04-07 08:19] LABS: Alanine Aminotransferase 17 U/L (0-33); Albumin Level 3.9 g/dL (3.5-5.2); Alkaline Phosphatase 67 U/L (35-105); Aspartate Amino Transferase 17 U/L (0-32); Blood Urea Nitrogen 12 mg/dL (8-23); Calcium 9.6 mg/dL (8.5-10.5); Carbon Dioxide 25 mmol/L (22-29); Chloride 99 mmol/L (98-107); Creatinine Clr Calc Pharmacy 73.9071; Glomerular Filtration Rate 83.7 mL/min (90-130); Glucose 152 mg/dL (65-115); Osmolality Calculated 285 mOsm/kg (285-295); Sodium 136 mmol/L (136-145); Total Bilirubin 0.2 mg/dL (0.15-1.2); Total Protein 6.9 g/dL (6.6-8.7)
[2024-04-07 08:22] LABS: Anion Gap 16.3 (5-19); Potassium 4.3 mmol/L (3.5-5.1)
[2024-04-07] MEDS: sodium chloride 0.9% 250 ML 75 ML IV (10:09)
[2024-04-07] MEDS: palonosetron 0.25 mg/5 mL SDV IVP (10:10)
[2024-04-07] MEDS: dexamethasone 4 mg/mL INJ 5 mL 12 MG IVP (10:15)
[2024-04-07] MEDS: bevacizumab-awwb 390 MG in sodium chloride 0.9% (100 ml) 100 ML 220 MG IV (10:30)
[2024-04-07 11:13] LABS: Add Urine Microscopic? YES; Bilirubin Urine Neg (Negative); Blood Urine 2+ (Negative); Glucose Urine UA Norm (Normal); Ketones Urine 1+ (Negative); Leukocyte Esterase Urine Trace (Negative); Nitrate Urine Positive (Negative); Protein Urine Trace (Negative); Specific Gravity, Urine 1.015 (1.005-1.030); Urine Appearance Slightly Cloudy (CLEAR); Urine Color Yellow (Yellow); Urobilinogen Urine Neg (Negative); pH Urine 7 (5-7)
[2024-04-07 11:15] LABS: Add Urine Culture? Yes; Bacteria Urine 3+ /hpf; Mucus Urine TRACE /hpf; Squamous Epithelial Cell Urine 0-4 /hpf (0-5); WBC Urine 0-4 /hpf (0-5)
[2024-04-07] MEDS: leucovorin 760 MG in dextrose 5% 250 ML 600 MG IV (11:17)
[2024-04-07] MEDS: fluorouraciL 4,550 MG, elastomeric pump 1 PUMP in sodium chloride 0.9% (100 ml) 1 ML IV (11:57)
[2024-04-07 12:05] VITALS: BP 176/83; PULSE 84; RESP 17; TEMP 36.4; O2SAT 93
== END 2024-04-07 23:59 | disposition home or self-care (01) ==
PROVIDERS: Nurse Practitioner Family; PCP Nurse Practitioner Family; Visit Provider Internal Medicine Medical Oncology
DX: Z53.9 Procedure and treatment not carried out, unspecified reason (principal); Z51.12 Encounter for antineoplastic immunotherapy; Z51.11 Encounter for antineoplastic chemotherapy; C18.2 Malignant neoplasm of ascending colon; C78.01 Secondary malignant neoplasm of right lung; Z79.899 Other long term (current) drug therapy; Z87.891 Personal history of nicotine dependence; Z90.49 Acquired absence of other specified parts of digestive tract; Z79.52 Long term (current) use of systemic steroids; G62.0 Drug-induced polyneuropathy; T45.1X5A Adverse effect of antineoplastic and immunosuppressive drugs, initial encounter; M54.50 Low back pain, unspecified; Z79.891 Long term (current) use of opiate analgesic
CPT/HCPCS: 36415; 36593; 71260; 74177; 80053; 81001; 82378; 85025; 87077; 87086; 87186; 96365; 96367; 96368; 96375; 96413; 96415; 96416; 96417; 99214; J0640; J1100; J2469; J2997; J7050; J7060; J9190; J9263; Q5107; Q9967

== ENCOUNTER 2024-08-12 13:16 | Oncology outpatient (recurring) (ONCR) | payer MEDICARE, MEDICAID, SELFPAY ==
[2024-08-12 14:26] LABS: Basophils % 0.4 %; Eosinophils # 0.2 10^3/uL (0.0-0.8); Hematocrit 44.5 % (36-47); Lymphocytes # 2.7 10^3/uL (0.8-4.8); Lymphocytes % 35.4 %; Mean Corpuscular Hemoglobin 27.6 pg (27-33); Mean Corpuscular Volume 83.6 fl (85-98); Mean Platelet Volume 8.9 fL (7.4-10.4); Monocytes # 0.8 10^3/uL (0.2-0.9); Monocytes % 9.9 %; Neutrophils # 3.93 10^3/uL (1.8-7.7); Nucleated Red Blood Cells % 0 %; Platelet Count 356 10^3/cmm (157-399); Red Blood Count 5.32 10^6/uL (3.85-5.65); Red Cell Distribution Width 16.8 % (12.1-15.1); White Blood Count 7.55 10^3/uL (3.29-11.43)
[2024-08-12 14:50] LABS: Alanine Aminotransferase 14 U/L (0-33); Albumin Level 4.1 g/dL (3.5-5.2); Alkaline Phosphatase 70 U/L (35-105); Anion Gap 14.9 (5-19); Aspartate Amino Transferase 20 U/L (0-32); Blood Urea Nitrogen 17 mg/dL (8-23); Calcium 9.2 mg/dL (8.5-10.5); Carbon Dioxide 27 mmol/L (22-29); Chloride 90 mmol/L (98-107); Creatinine Clr Calc Pharmacy 68.6095; Globulin 2.7 g/dL (1.3-4.6); Glomerular Filtration Rate 83.7 mL/min (90-130); Glucose 130 mg/dL (65-115); Osmolality Calculated 269 mOsm/kg (285-295); Potassium 3.9 mmol/L (3.5-5.1); Sodium 128 mmol/L (136-145); Total Bilirubin 0.3 mg/dL (0.15-1.2); Total Protein 6.8 g/dL (6.6-8.7)
[2024-08-12 16:12] LABS: Carcinoembryonic Antigen 7.1 ng/mL (0.0-4.7)
== END 2024-08-14 23:59 | disposition home or self-care (01) ==
PROVIDERS: Internal Medicine Hematology & Oncology; PCP Nurse Practitioner Family; Visit Provider Internal Medicine Medical Oncology
DX: C18.0 Malignant neoplasm of cecum (principal); C78.00 Secondary malignant neoplasm of unspecified lung; Z90.49 Acquired absence of other specified parts of digestive tract; Z87.891 Personal history of nicotine dependence; Z79.899 Other long term (current) drug therapy; Z79.52 Long term (current) use of systemic steroids
CPT/HCPCS: 36591; 80053; 82378; 85025; 99214

== ENCOUNTER 2024-09-02 08:01 | Oncology outpatient (recurring) (ONCR) | payer MEDICARE, MEDICAID, SELFPAY ==
[2024-08-19 07:50] LABS: Basophils % 0.5 %; Eosinophils # 0.2 10^3/uL (0.0-0.8); Eosinophils % 2.2 %; Hematocrit 47.7 % (36-47); Lymphocytes # 2.2 10^3/uL (0.8-4.8); Lymphocytes % 27.9 %; Mean Corpuscular HGB Conc 32.5 g/dL (30-55); Mean Corpuscular Hemoglobin 27.6 pg (27-33); Mean Platelet Volume 8.5 fL (7.4-10.4); Monocytes # 0.7 10^3/uL (0.2-0.9); Monocytes % 8.7 %; Neutrophils # 4.62 10^3/uL (1.8-7.7); Neutrophils % 59.4 %; Nucleated Red Blood Cells % 0 %; Platelet Count 380 10^3/cmm (157-399); Red Blood Count 5.61 10^6/uL (3.85-5.65); Red Cell Distribution Width 17.1 % (12.1-15.1); White Blood Count 7.78 10^3/uL (3.29-11.43)
[2024-08-19 08:09] LABS: Alanine Aminotransferase 14 U/L (0-33); Albumin Level 4.3 g/dL (3.5-5.2); Alkaline Phosphatase 67 U/L (35-105); Anion Gap 17.4 (5-19); Aspartate Amino Transferase 13 U/L (0-32); Blood Urea Nitrogen 16 mg/dL (8-23); Calcium 9.3 mg/dL (8.5-10.5); Carbon Dioxide 27 mmol/L (22-29); Chloride 97 mmol/L (98-107); Globulin 2.7 g/dL (1.3-4.6); Glomerular Filtration Rate 83.7 mL/min (90-130); Glucose 156 mg/dL (65-115); Osmolality Calculated 288 mOsm/kg (285-295); Potassium 4.4 mmol/L (3.5-5.1); Sodium 137 mmol/L (136-145); Total Bilirubin 0.2 mg/dL (0.15-1.2)
[2024-08-19 08:10] LABS: Bilirubin Urine Negative (Negative); Blood Urine Negative (Negative); Glucose Urine UA Negative (Normal); Ketones Urine Negative (Negative); Leukocyte Esterase Urine Negative (Negative); Nitrate Urine Negative (Negative); Protein Urine Negative (Negative); Specific Gravity, Urine 1.013 (1.005-1.030); Urine Appearance Clear (CLEAR); Urine Color Yellow (Yellow); pH Urine 7.5 (5-7)
[2024-08-19 08:19] LABS: Add Urine Microscopic? YES; Bacteria Urine Trace /hpf; Hyaline Casts Urine 0-4 /lpf; RBC Urine 0-2 /hpf (0-2); Squamous Epithelial Cell Urine 0-5 /hpf (0-5); WBC Urine 0-5 /hpf (0-5)
[2024-08-19 09:10] VITALS: BP 156/81; PULSE 78; RESP 16; TEMP 36.4; O2SAT 96
[2024-08-19] MEDS: sodium chloride 0.9% 250 ML 75 ML IV (09:16)
[2024-08-19] MEDS: ondansetron 2 mg/ML SDV 2 mL 8 MG IVP (09:16)
[2024-08-19] MEDS: BEVACIZUMAB BVZR IV (09:50)
[2024-08-19] MEDS: SODIUM CHLORIDE 0.9% IV (09:50)
[2024-08-19] MEDS: leucovorin 750 MG in dextrose 5% 250 ML 500 MG IV (11:19)
[2024-08-19] MEDS: fluorouraciL 50 mg/ml MDV 100 mL 750 MG IVP (11:58)
[2024-08-19] MEDS: fluorouraciL 4,350 MG, elastomeric pump 1 PUMP in sodium chloride 0.9% (100 ml) 5 ML IV (12:07)
[2024-09-02 08:46] LABS: Basophils % 0.4 %; Eosinophils # 0.1 10^3/uL (0.0-0.8); Eosinophils % 1.5 %; Hematocrit 47.1 % (36-47); Lymphocytes # 1.8 10^3/uL (0.8-4.8); Lymphocytes % 24.2 %; Mean Corpuscular HGB Conc 33.8 g/dL (30-55); Mean Corpuscular Hemoglobin 28.2 pg (27-33); Mean Corpuscular Volume 83.5 fl (85-98); Mean Platelet Volume 8.4 fL (7.4-10.4); Monocytes # 0.6 10^3/uL (0.2-0.9); Monocytes % 8.4 %; Neutrophils % 65.4 %; Nucleated Red Blood Cells % 0 %; Platelet Count 276 10^3/cmm (157-399); Red Blood Count 5.64 10^6/uL (3.85-5.65); Red Cell Distribution Width 17.9 % (12.1-15.1); White Blood Count 7.49 10^3/uL (3.29-11.43)
[2024-09-02 09:12] LABS: Carcinoembryonic Antigen 7.4 ng/mL (0.0-4.7)
[2024-09-02 09:23] LABS: Alanine Aminotransferase 16 U/L (0-33); Albumin Level 4.3 g/dL (3.5-5.2); Alkaline Phosphatase 89 U/L (35-105); Anion Gap 16.2 (5-19); Aspartate Amino Transferase 14 U/L (0-32); Blood Urea Nitrogen 19 mg/dL (8-23); Calcium 8.8 mg/dL (8.5-10.5); Carbon Dioxide 24 mmol/L (22-29); Chloride 94 mmol/L (98-107); Creatinine Clr Calc Pharmacy 67.8171; Globulin 2.9 g/dL (1.3-4.6); Glomerular Filtration Rate 83.7 mL/min (90-130); Glucose 174 mg/dL (65-115); Osmolality Calculated 276 mOsm/kg (285-295); Potassium 4.2 mmol/L (3.5-5.1); Sodium 130 mmol/L (136-145); Total Bilirubin 0.3 mg/dL (0.15-1.2); Total Protein 7.2 g/dL (6.6-8.7)
[2024-09-02] MEDS: sodium chloride 0.9% 250 ML 75 ML IV (10:17)
[2024-09-02] MEDS: ondansetron 2 mg/ML SDV 2 mL 8 MG IVP (10:21)
[2024-09-02] MEDS: BEVACIZUMAB BVZR IV (10:52)
[2024-09-02] MEDS: SODIUM CHLORIDE 0.9% IV (10:52)
[2024-09-02] MEDS: leucovorin 750 MG in dextrose 5% 250 ML 500 MG IV (11:53)
[2024-09-02] MEDS: fluorouraciL 50 mg/ml MDV 100 mL 750 MG IVP (12:52)
[2024-09-02] MEDS: fluorouraciL 4,350 MG, elastomeric pump 1 PUMP in sodium chloride 0.9% (100 ml) 5 ML IV (13:00)
[2024-09-02 13:05] VITALS: BP 149/84; PULSE 76; RESP 16; TEMP 35.8; O2SAT 94
== END 2024-09-13 23:59 | disposition home or self-care (01) ==
PROVIDERS: Nurse Practitioner Family; PCP Nurse Practitioner Family; Visit Provider Internal Medicine Hematology & Oncology
DX: Z53.9 Procedure and treatment not carried out, unspecified reason; Z51.11 Encounter for antineoplastic chemotherapy; C18.0 Malignant neoplasm of cecum; C78.00 Secondary malignant neoplasm of unspecified lung; Z79.899 Other long term (current) drug therapy; Z87.891 Personal history of nicotine dependence; Z90.49 Acquired absence of other specified parts of digestive tract; Z79.52 Long term (current) use of systemic steroids
CPT/HCPCS: 80053; 81001; 82378; 85025; 96365; 96367; 96375; 96409; 96411; 96413; 96416; 99214; J0640; J2405; J7050; J7060; J9190; Q5118

== ENCOUNTER 2024-10-09 13:33 | Outpatient (CLI) | payer MEDICARE, MEDICAID, SELFPAY ==
--- NOTE | 2024-10-09 13:39 | MM_ITS ---
WS: [id number] BILATERAL SCREENING DIGITAL TOMOSYNTHESIS MAMMOGRAM WITH CAD HISTORY: SCREENING COMPARISON: 07/18/2022 Bilateral CC and MLO views with tomosynthesis and synthetic mammography submitted. Computer aided det ection analyzed. Breast composition: There are scattered areas of fibroglandular density. No suspicious masses, microc alcifications or architectural distortion. Numerous bilateral masses are identified in each breast. T he largest mass in the upper outer quadrant contains a central biopsy clip. There are additional mass es scattered throughout the LEFT breast which are stable. Benign calcifications in each breast. MM/MM scr tomosynthesis [id number] IMPRESSION: BI-RADS: 2 - Benign. FOLLOW UP: 1 Year Follow-up
--- NOTE | 2024-10-09 13:39 | XR_ITS ---
WS: [id number] SCREENING DEXA SCAN [place] CLINICAL INFORMATION: POSTMENOPAUSAL COMPARISON: None. FINDINGS: The L1-L4 bone mineral density measures 1.458 g/cm2. This corresponds to a T score score of 2.3 and Z score of 3.5. Left femoral neck bone mineral density measures 0.989 g/cm2. This corresponds to a T score of -0.2 an d Z score of 0.9. Right femoral neck bone mineral density measures 1.016 g/cm2. This corresponds to a T score 0.1of and Z score of 1.1. Mean femoral neck bone mineral density measures 1.002 g/cm2. This corresponds to a T score of 0.0 and Z score of 1.0. XR/XR DEXA axial skeleton* [id number] IMPRESSION: Normal bone mineralization. Patient's FRAX calculated 10 year probability for major osteoporotic fracture i s 7.2% and osteoporotic hip fracture is 0.3%.
== END 2024-10-09 13:34 | disposition home or self-care (01) ==
LOC: RAD 13:34
PROVIDERS: PCP Nurse Practitioner Family; Visit Provider Nurse Practitioner Family
DX: Z12.31 Encounter for screening mammogram for malignant neoplasm of breast (principal); Z13.820 Encounter for screening for osteoporosis; R92.323 Mammographic fibroglandular density, bilateral breasts; R92.1 Mammographic calcification found on diagnostic imaging of breast; Z78.0 Asymptomatic menopausal state
CPT/HCPCS: 77063; 77067; 77080

== ENCOUNTER 2024-10-14 09:00 | Oncology outpatient (recurring) (ONCR) | payer MEDICARE, MEDICAID, SELFPAY ==
[2024-09-30 10:08] LABS: Basophils # 0.1 10^3/uL (0.0-0.1); Basophils % 0.6 %; Eosinophils # 0.2 10^3/uL (0.0-0.8); Eosinophils % 2.7 %; Hematocrit 46.3 % (36-47); Lymphocytes # 2.5 10^3/uL (0.8-4.8); Lymphocytes % 30.5 %; Mean Corpuscular HGB Conc 32.4 g/dL (30-55); Mean Corpuscular Hemoglobin 28.1 pg (27-33); Mean Corpuscular Volume 86.7 fl (85-98); Mean Platelet Volume 8.4 fL (7.4-10.4); Monocytes # 0.7 10^3/uL (0.2-0.9); Monocytes % 7.8 %; Neutrophils # 4.82 10^3/uL (1.8-7.7); Neutrophils % 58.2 %; Nucleated Red Blood Cells % 0 %; Platelet Count 378 10^3/cmm (157-399); Red Blood Count 5.34 10^6/uL (3.85-5.65); Red Cell Distribution Width 19.4 % (12.1-15.1); White Blood Count 8.29 10^3/uL (3.29-11.43)
[2024-09-30 10:23] LABS: Alanine Aminotransferase 18 U/L (0-33); Albumin Level 4.1 g/dL (3.5-5.2); Alkaline Phosphatase 92 U/L (35-105); Anion Gap 17.1 (5-19); Aspartate Amino Transferase 16 U/L (0-32); Blood Urea Nitrogen 15 mg/dL (8-23); Calcium 9.8 mg/dL (8.5-10.5); Carbon Dioxide 25 mmol/L (22-29); Chloride 100 mmol/L (98-107); Globulin 2.8 g/dL (1.3-4.6); Glomerular Filtration Rate 83.7 mL/min (90-130); Glucose 164 mg/dL (65-115); Osmolality Calculated 290 mOsm/kg (285-295); Potassium 4.1 mmol/L (3.5-5.1); Sodium 138 mmol/L (136-145); Total Bilirubin 0.2 mg/dL (0.15-1.2); Total Protein 6.9 g/dL (6.6-8.7)
[2024-09-30] MEDS: sodium chloride 0.9% 250 ML 75 ML IV (11:03)
[2024-09-30] MEDS: ondansetron 2 mg/ML SDV 2 mL 8 MG IVP (11:10)
[2024-09-30 11:29] LABS: Carcinoembryonic Antigen 7.5 ng/mL (0.0-4.7)
[2024-09-30] MEDS: alteplase 1 mg/mL SDV 2 mL 2 MG INTRACATH (11:59)
[2024-09-30] MEDS: BEVACIZUMAB BVZR IV (12:55)
[2024-09-30] MEDS: SODIUM CHLORIDE 0.9% IV (12:55)
[2024-09-30] MEDS: leucovorin 750 MG in dextrose 5% 250 ML 500 MG IV (13:37)
[2024-09-30] MEDS: fluorouraciL 50 mg/ml MDV 100 mL 750 MG IVP (14:15)
[2024-09-30] MEDS: fluorouraciL 4,350 MG, elastomeric pump 1 PUMP in sodium chloride 0.9% (100 ml) 5 ML IV (14:22)
[2024-10-14 09:35] LABS: Basophils # 0.1 10^3/uL (0.0-0.1); Basophils % 0.9 %; Eosinophils # 0.2 10^3/uL (0.0-0.8); Eosinophils % 1.9 %; Hematocrit 45.1 % (36-47); Lymphocytes # 2.5 10^3/uL (0.8-4.8); Lymphocytes % 31.9 %; Mean Corpuscular HGB Conc 32.2 g/dL (30-55); Mean Corpuscular Hemoglobin 27.8 pg (27-33); Mean Corpuscular Volume 86.6 fl (85-98); Mean Platelet Volume 8.2 fL (7.4-10.4); Monocytes # 0.8 10^3/uL (0.2-0.9); Neutrophils # 4.26 10^3/uL (1.8-7.7); Neutrophils % 55.2 %; Nucleated Red Blood Cells % 0 %; Platelet Count 288 10^3/cmm (157-399); Red Blood Count 5.21 10^6/uL (3.85-5.65); Red Cell Distribution Width 19.3 % (12.1-15.1); White Blood Count 7.72 10^3/uL (3.29-11.43)
[2024-10-14 09:55] LABS: Carcinoembryonic Antigen 7.7 ng/mL (0.0-4.7)
[2024-10-14 10:07] LABS: Alanine Aminotransferase 16 U/L (0-33); Alkaline Phosphatase 90 U/L (35-105); Anion Gap 18.2 (5-19); Aspartate Amino Transferase 14 U/L (0-32); Blood Urea Nitrogen 10 mg/dL (8-23); Calcium 9.5 mg/dL (8.5-10.5); Carbon Dioxide 24 mmol/L (22-29); Chloride 98 mmol/L (98-107); Creatinine Clr Calc Pharmacy 74.3155; Globulin 3.1 g/dL (1.3-4.6); Glucose 154 mg/dL (65-115); Osmolality Calculated 284 mOsm/kg (285-295); Potassium 4.2 mmol/L (3.5-5.1); Sodium 136 mmol/L (136-145); Total Bilirubin 0.3 mg/dL (0.15-1.2); Total Protein 7.1 g/dL (6.6-8.7)
--- NOTE | 2024-10-14 12:23 | XRR_ITS ---
PROCEDURE INFORMATION: Exam: XR Bilateral Hips Exam date and time: 10/14/2024 12:59 PM Age: 68 years old Clinical indication: Hip pain; Bilateral; Patient HX: HX of lung cancer, went to lung; Additional info: Bilateral hip pain r>l TECHNIQUE: Imaging protocol: Radiologic exam of the bilateral hips. Views: 2 views of hips with pelvis when performed. COMPARISON: CT chest abdpel w/*[id number] 03/25/2024 9:33 AM FINDINGS: Bones/joints: No significant hip or sacroiliac joint abnormality. No acute fracture or dislocation. No suspicious focal lytic or blastic bony lesion evident. Incompletely imaged degenerative change of the lower lumbar spine. Soft tissues: Vascular calcifications noted in the soft tissues. XR/XR hip BI 3-4V wo/w pel [id number] IMPRESSION: No significant hip pathology.
--- NOTE | 2024-10-14 17:22 | PC.NURSE ---
Pt requested to come back on 10/16/2024 due to extended time she had to wait for treatment today. Pt was rescheduled as requested.
== END 2024-10-14 23:59 | disposition home or self-care (01) ==
PROVIDERS: PCP Nurse Practitioner Family; Visit Provider Internal Medicine Medical Oncology
DX: M25.551 Pain in right hip; Z53.9 Procedure and treatment not carried out, unspecified reason; M25.552 Pain in left hip; Z85.118 Personal history of other malignant neoplasm of bronchus and lung
CPT/HCPCS: 36593; 73522; 80053; 82378; 85025; 96365; 96367; 96375; 96409; 96411; 96413; 96416; 99214; J0640; J2405; J2997; J7050; J7060; J9190; Q5118

== ENCOUNTER 2024-11-11 09:00 | Oncology outpatient (recurring) (ONCR) | payer MEDICARE, MEDICAID, SELFPAY ==
[2024-10-16] MEDS: sodium chloride 0.9% 250 ML 75 ML IV (09:37)
[2024-10-16] MEDS: ondansetron 2 mg/ML SDV 2 mL 8 MG IVP (09:39)
[2024-10-16] MEDS: SODIUM CHLORIDE 0.9% IV (10:04)
[2024-10-16] MEDS: BEVACIZUMAB BVZR IV (10:04)
[2024-10-16] MEDS: dextrose 5% 250 ML 75 ML IV (10:47)
[2024-10-16] MEDS: leucovorin 750 MG in dextrose 5% 250 ML 650 MG IV (10:48)
[2024-10-16] MEDS: fluorouraciL 50 mg/ml MDV 100 mL 750 MG IVP (11:42)
[2024-10-16] MEDS: fluorouraciL 4,550 MG in elastomeric pump 1 PUMP IV (11:42)
[2024-10-16 16:35] VITALS: BP 142/67; PULSE 76; RESP 18; TEMP 36.6; O2SAT 98
[2024-10-28 09:21] LABS: Basophils % 0.4 %; Eosinophils # 0.3 10^3/uL (0.0-0.8); Eosinophils % 3.1 %; Hematocrit 46.2 % (36-47); Lymphocytes # 3.3 10^3/uL (0.8-4.8); Lymphocytes % 34.4 %; Mean Corpuscular HGB Conc 32.3 g/dL (30-55); Mean Corpuscular Hemoglobin 28.4 pg (27-33); Mean Platelet Volume 8.3 fL (7.4-10.4); Monocytes % 9.9 %; Neutrophils # 5.03 10^3/uL (1.8-7.7); Neutrophils % 51.9 %; Nucleated Red Blood Cells % 0 %; Platelet Count 296 10^3/cmm (157-399); Red Blood Count 5.25 10^6/uL (3.85-5.65); Red Cell Distribution Width 19.4 % (12.1-15.1)
[2024-10-28 09:47] LABS: Carcinoembryonic Antigen 7.6 ng/mL (0.0-4.7)
[2024-10-28 09:57] LABS: Alanine Aminotransferase 26 U/L (0-33); Albumin Level 4.2 g/dL (3.5-5.2); Alkaline Phosphatase 75 U/L (35-105); Anion Gap 17.5 (5-19); Aspartate Amino Transferase 22 U/L (0-32); Blood Urea Nitrogen 25 mg/dL (8-23); Calcium 10.1 mg/dL (8.5-10.5); Carbon Dioxide 25 mmol/L (22-29); Chloride 96 mmol/L (98-107); Creatinine Clr Calc Pharmacy 66.1906; Globulin 2.5 g/dL (1.3-4.6); Glomerular Filtration Rate 62.6 mL/min (90-130); Glucose 133 mg/dL (65-115); Osmolality Calculated 284 mOsm/kg (285-295); Potassium 4.5 mmol/L (3.5-5.1); Sodium 134 mmol/L (136-145); Total Bilirubin 0.4 mg/dL (0.15-1.2); Total Protein 6.7 g/dL (6.6-8.7)
[2024-10-28] MEDS: sodium chloride 0.9% 250 ML 75 ML IV (10:30)
[2024-10-28] MEDS: ondansetron 2 mg/ML SDV 2 mL 8 MG IVP (10:32)
[2024-10-28] MEDS: BEVACIZUMAB BVZR IV (10:59)
[2024-10-28] MEDS: SODIUM CHLORIDE 0.9% IV (10:59)
[2024-10-28] MEDS: leucovorin 750 MG in dextrose 5% 250 ML 500 MG IV (11:40)
[2024-10-28] MEDS: fluorouraciL 50 mg/ml MDV 100 mL 750 MG IVP (12:27)
[2024-10-28] MEDS: fluorouraciL 4,550 MG in elastomeric pump 1 PUMP IV (12:27)
--- NOTE | 2024-11-07 13:00 | PETR_ITS ---
PROCEDURE INFORMATION: Exam: PET/CT Skull Base to Mid-thigh Exam date and time: 11/07/2024 2:04 PM Age: 68 years old Clinical indication: Condition or disease; Primary cancer: Colon cancer; Prior surgery; Surgery date: 6+ months; Surgery type: Port hyst; Additional info: Colon cancer; Compare to previous LABS AND CLINICAL REPORTS: Glucose: 101 mg/dl Treatment strategy for malignancy (PET staging): Restaging (PS) TECHNIQUE: Imaging protocol: Following at least four-hour fasting and following the injection of radiopharmaceutical, low dose CT images were obtained. Then, PET images were obtained. Attenuation corrected images were constructed using the CT scan. Fused images of PET and CT were reviewed. The standardized uptake values (SUV) reported below are maximum values within a region of interest, expressed in gm/ml. Exam includes orbital meatal line to mid-thigh. SUV normalization method: BodyWeight Radiopharmaceutical: 10.95 mCi F-18 FDG (Fluorodeoxyglucose), IV. Time of imaging post radiopharmaceutical administration: 47 minutes Injection site: LEFT AC COMPARISON: 1. PT PET skull to thigh SUBS [id number] 10/16/2023 11:[address] chest abdpel w/*[id number] 03/25/2024 9:33 AM FINDINGS: Brain: Visualized brain has normal physiologic uptake. Pharynx: No abnormal uptake. Larynx: No abnormal uptake. Lungs, pleura and trachea: Increased FDG uptake is seen within some metastatic pulmonary nodules compared to prior. Index right lower lobe nodule has SUV max 6.8, previously 2.0. This measures similarly at 1.3 x 1.5 cm. Index left lower lobe pulmonary nodule has SUV max 6.4, previously below background. This measures similarly at 0.5 x 0.9 cm. Index left lower lobe nodule has SUV max 7.0 on image 94, previously below background. This measures similarly up to 8 mm. A non avid right middle lobe pulmonary nodule is decreased in size on image 112, now measuring up to 3 mm, previously 6 mm. Heart: Normal physiologic uptake. Mediastinal space: No abnormal uptake. Liver: No abnormal uptake. Gallbladder and biliary ducts: No abnormal uptake. Pancreas: No abnormal uptake. Spleen: No abnormal uptake. Adrenal glands: No abnormal uptake. Kidneys and ureters: Normal physiologic uptake. Stomach and bowel: Status post right hemicolectomy. No bowel obstruction. Reproductive: Hysterectomy. Vasculature: Fusiform ectasia of the infrarenal abdominal aorta. Lymph nodes: Increased FDG uptake within mediastinal and bilateral hilar lymph nodes. Index precarinal lymph node has SUV max 4.9. Skeleton: Tiny focus of FDG uptake corresponding to the spinal canal with SUV max 3.2 on image 144. Soft tissues: Increased FDG uptake within a rounded low-density lesion in the right breast, now with SUV max 3.7, previously 1.6. Increased FDG uptake within paraspinous musculature in the lower thoracic region is likely physiologic. METRICS: Mediastinal blood pool: SUV max is 2.9 Liver uptake: SUV max is 3.2 PET/PET skull to thigh SUBS [id number] IMPRESSION: 1. Increased FDG uptake within pulmonary nodules compared to prior PET. The nodules measure similarly. At least one non-FDG avid pulmonary nodule has decreased in size. 2. Mildly increased FDG uptake within mediastinal and hilar lymph nodes, nonspecific. 3. Tiny focus of FDG uptake corresponding to the spinal canal in the lower thoracic region, nonspecific. This can be monitored on follow-up or could be further evaluated with MRI if the patient has any pain or neurologic symptoms. 4. Increased FDG uptake within a rounded low-density lesion in the right breast. Recommend correlation with dedicated breast imaging.
[2024-11-11 09:10] LABS: Basophils % 0.4 %; Eosinophils # 0.2 10^3/uL (0.0-0.8); Eosinophils % 2.5 %; Hematocrit 46.2 % (36-47); Lymphocytes # 2.1 10^3/uL (0.8-4.8); Lymphocytes % 28.4 %; Mean Corpuscular HGB Conc 32.7 g/dL (30-55); Mean Corpuscular Hemoglobin 28.4 pg (27-33); Mean Corpuscular Volume 86.8 fl (85-98); Mean Platelet Volume 8.3 fL (7.4-10.4); Monocytes # 0.8 10^3/uL (0.2-0.9); Monocytes % 11.7 %; Neutrophils % 56.9 %; Nucleated Red Blood Cells % 0 %; Platelet Count 246 10^3/cmm (157-399); Red Blood Count 5.32 10^6/uL (3.85-5.65); Red Cell Distribution Width 19.4 % (12.1-15.1); White Blood Count 7.21 10^3/uL (3.29-11.43)
[2024-11-11 09:45] LABS: Carcinoembryonic Antigen 7.7 ng/mL (0.0-4.7)
[2024-11-11 09:58] LABS: Alanine Aminotransferase 21 U/L (0-33); Albumin Level 4.3 g/dL (3.5-5.2); Alkaline Phosphatase 81 U/L (35-105); Anion Gap 19.3 (5-19); Aspartate Amino Transferase 20 U/L (0-32); Blood Urea Nitrogen 17 mg/dL (8-23); Calcium 9.9 mg/dL (8.5-10.5); Carbon Dioxide 24 mmol/L (22-29); Chloride 96 mmol/L (98-107); Creatinine Clr Calc Pharmacy 74.4644; Globulin 2.9 g/dL (1.3-4.6); Glomerular Filtration Rate 71.8 mL/min (90-130); Glucose 157 mg/dL (65-115); Osmolality Calculated 285 mOsm/kg (285-295); Potassium 4.3 mmol/L (3.5-5.1); Sodium 135 mmol/L (136-145); Total Bilirubin 0.2 mg/dL (0.15-1.2); Total Protein 7.2 g/dL (6.6-8.7)
== END 2024-11-14 23:59 | disposition home or self-care (01) ==
PROVIDERS: PCP Nurse Practitioner Family; Visit Provider Internal Medicine Medical Oncology
DX: Z53.9 Procedure and treatment not carried out, unspecified reason; C18.0 Malignant neoplasm of cecum; C78.01 Secondary malignant neoplasm of right lung; Z95.828 Presence of other vascular implants and grafts; Z87.891 Personal history of nicotine dependence; Z90.49 Acquired absence of other specified parts of digestive tract; R59.9 Enlarged lymph nodes, unspecified; N64.89 Other specified disorders of breast
CPT/HCPCS: 36591; 78815; 80053; 82378; 85025; 96365; 96368; 96375; 96409; 96413; 96416; 96417; 99214; A9552; J0640; J2405; J7050; J7060; J9190; Q5118

== ENCOUNTER 2024-12-09 09:02 | Oncology outpatient (recurring) (ONCR) | payer MEDICARE, SELFPAY ==
[2024-12-09 09:36] LABS: Basophils # 0.1 10^3/uL (0.0-0.1); Basophils % 0.5 %; Eosinophils # 0.2 10^3/uL (0.0-0.8); Eosinophils % 2.2 %; Lymphocytes # 2.7 10^3/uL (0.8-4.8); Lymphocytes % 26.2 %; Mean Corpuscular HGB Conc 32.4 g/dL (30-55); Mean Corpuscular Hemoglobin 28.6 pg (27-33); Mean Corpuscular Volume 88.2 fl (85-98); Mean Platelet Volume 8.5 fL (7.4-10.4); Monocytes # 0.9 10^3/uL (0.2-0.9); Monocytes % 9.1 %; Neutrophils # 6.25 10^3/uL (1.8-7.7); Neutrophils % 61.7 %; Nucleated Red Blood Cells % 0 %; Platelet Count 378 10^3/cmm (157-399); Red Cell Distribution Width 16.9 % (12.1-15.1); White Blood Count 10.12 10^3/uL (3.29-11.43)
[2024-12-09 09:57] LABS: Free T4 Free Thyroxine 1.29 ng/dL (0.82-1.77); Thyroid Stimulating Hormone 3.52 uIU/mL (0.27-4.20)
[2024-12-09 09:59] LABS: Carcinoembryonic Antigen 7.1 ng/mL (0.0-4.7)
[2024-12-09 10:08] LABS: Alanine Aminotransferase 15 U/L (0-33); Alkaline Phosphatase 85 U/L (35-105); Aspartate Amino Transferase 14 U/L (0-32); Blood Urea Nitrogen 13 mg/dL (8-23); Calcium 9.5 mg/dL (8.5-10.5); Carbon Dioxide 25 mmol/L (22-29); Creatinine Clr Calc Pharmacy 67.4871; Globulin 3.2 g/dL (1.3-4.6); Glomerular Filtration Rate 99.7 mL/min (90-130); Total Bilirubin 0.2 mg/dL (0.15-1.2); Total Protein 7.2 g/dL (6.6-8.7)
[2024-12-09 10:21] LABS: Glucose 120 mg/dL (65-115); Osmolality Calculated 279 mOsm/kg (285-295); Sodium 134 mmol/L (136-145)
[2024-12-09 10:22] LABS: Chloride 96 mmol/L (98-107)
[2024-12-09 10:40] LABS: Vitamin B12 402 pg/mL (232-1245)
== END 2024-12-12 23:59 | disposition home or self-care (01) ==
PROVIDERS: Nurse Practitioner; PCP Nurse Practitioner Family; Visit Provider Internal Medicine Medical Oncology
DX: C18.0 Malignant neoplasm of cecum (principal); C78.01 Secondary malignant neoplasm of right lung; E61.1 Iron deficiency; R53.83 Other fatigue; L27.1 Localized skin eruption due to drugs and medicaments taken internally; G62.9 Polyneuropathy, unspecified; R21 Rash and other nonspecific skin eruption; Z95.828 Presence of other vascular implants and grafts; Z87.891 Personal history of nicotine dependence; Z90.49 Acquired absence of other specified parts of digestive tract
CPT/HCPCS: 80053; 82378; 82607; 84439; 84443; 85025; 99214

== ENCOUNTER 2025-01-20 09:12 | Oncology outpatient (recurring) (ONCR) | payer MEDICARE, SELFPAY ==
[2025-01-20 09:37] LABS: Basophils % 0.5 %; Eosinophils # 0.2 10^3/uL (0.0-0.8); Eosinophils % 2.4 %; Hematocrit 48.3 % (36-47); Mean Corpuscular HGB Conc 31.9 g/dL (30-55); Mean Corpuscular Hemoglobin 27.8 pg (27-33); Mean Corpuscular Volume 87.2 fl (85-98); Mean Platelet Volume 8.5 fL (7.4-10.4); Monocytes # 0.8 10^3/uL (0.2-0.9); Monocytes % 9.1 %; Neutrophils # 4.67 10^3/uL (1.8-7.7); Neutrophils % 53.9 %; Nucleated Red Blood Cells % 0 %; Platelet Count 374 10^3/cmm (157-399); Red Blood Count 5.54 10^6/uL (3.85-5.65); Red Cell Distribution Width 15.3 % (12.1-15.1); White Blood Count 8.67 10^3/uL (3.29-11.43)
[2025-01-20 10:07] LABS: Carcinoembryonic Antigen 7.3 ng/mL (0.0-4.7)
[2025-01-20 10:43] LABS: Alanine Aminotransferase 16 U/L (0-33); Albumin Level 4.2 g/dL (3.5-5.2); Alkaline Phosphatase 68 U/L (35-105); Anion Gap 15.3 (5-19); Aspartate Amino Transferase 14 U/L (0-32); Blood Urea Nitrogen 15 mg/dL (8-23); Calcium 9.8 mg/dL (8.5-10.5); Carbon Dioxide 24 mmol/L (22-29); Chloride 100 mmol/L (98-107); Creatinine Clr Calc Pharmacy 67.2915; Glomerular Filtration Rate 99.7 mL/min (90-130); Glucose 130 mg/dL (65-115); Osmolality Calculated 283 mOsm/kg (285-295); Potassium 4.3 mmol/L (3.5-5.1); Sodium 135 mmol/L (136-145); Total Bilirubin 0.2 mg/dL (0.15-1.2); Total Protein 7.2 g/dL (6.6-8.7)
== END 2025-02-11 23:59 | disposition home or self-care (01) ==
PROVIDERS: PCP Nurse Practitioner Family; Visit Provider Internal Medicine Medical Oncology
DX: C18.0 Malignant neoplasm of cecum (principal); C78.01 Secondary malignant neoplasm of right lung; G62.9 Polyneuropathy, unspecified; L27.1 Localized skin eruption due to drugs and medicaments taken internally; G89.3 Neoplasm related pain (acute) (chronic); Z90.49 Acquired absence of other specified parts of digestive tract; Z79.891 Long term (current) use of opiate analgesic; Z87.891 Personal history of nicotine dependence
CPT/HCPCS: 36591; 80053; 82378; 85025; 99214

== ENCOUNTER 2025-03-03 11:45 | Oncology outpatient (recurring) (ONCR) | payer MEDICARE, SELFPAY ==
--- NOTE | 2025-02-27 08:00 | PETR_ITS ---
PROCEDURE INFORMATION: Exam: PET/CT Skull Base to Mid-thigh Exam date and time: 02/27/2025 8:55 AM Age: 69 years old Clinical indication: Condition or disease; Primary cancer: Malignant neoplasm of cecum; Follow-up oncological assessment; Condition/disease: Colon cancer; Prior surgery; Surgery date: 6+ months; Surgery type: Port, hyst LABS AND CLINICAL REPORTS: Glucose: 155 mg/dl Treatment strategy for malignancy (PET staging): Restaging (PS) TECHNIQUE: Imaging protocol: Following at least four-hour fasting and following the injection of radiopharmaceutical, low dose CT images were obtained. Then, PET images were obtained. Attenuation corrected images were constructed using the CT scan. Fused images of PET and CT were reviewed. The standardized uptake values (SUV) reported below are maximum values within a region of interest, expressed in gm/ml. Exam includes orbital meatal line to mid-thigh. SUV normalization method: BodyWeight Radiopharmaceutical: 10.9 mCi F-18 FDG (Fluorodeoxyglucose), IV. Time of imaging post radiopharmaceutical administration: 45 minutes Injection site: right ac COMPARISON: PT PET skull to thigh [id number] [id number] 11/07/2024 2:04 PM FINDINGS: Tubes, catheters and devices: A left subclavian central venous port catheter terminates at the distal SVC/right atrial junction. Brain: Visualized brain has normal physiologic uptake. Pharynx: No abnormal uptake. Larynx: No abnormal uptake. Lungs, pleura and trachea: There are radiotracer avid bilateral solid pulmonary nodules. Examples: Right upper lobe measuring 7 mm (previously 5 mm) on image 94, SUV max 7.0 (previously 2.3); similar in size in the medial left lower lobe measuring 9 mm on image 104, SUV max 8.8 (previously 6.4). A solid nodule in the superior segment of the left lower lobe measuring 7 mm (previously 8-9 mm) is noted, SUV max 5.0 (previously 7.0). A solid anterior left lower lobe 6 mm nodule is similar in size, SUV max 8.6 (previously 3.6) on CT image 121. The largest solid nodule is noted in the right lower lobe measuring 2.2 x 1.5 cm (remeasured on the prior PET-CT at 1.8 x 1.3 cm) on image 117, SUV max 7.1 (previously 6.8). Heart: Normal physiologic uptake. Mediastinal space: No abnormal uptake. Liver: No abnormal uptake. Gallbladder and biliary ducts: No abnormal uptake. Pancreas: No abnormal uptake. Spleen: No abnormal uptake. Calcified granulomas in the spleen are identified. Adrenal glands: Asymmetric uptake in the medial limb of the left adrenal gland is noted without a well-defined lesion of the CT images, SUV max 4.2 (previously 2.6) on image 162. Unremarkable right adrenal gland. Kidneys and ureters: Normal physiologic uptake. Stomach and bowel: No abnormal uptake. Reproductive: The uterus is not identified, likely surgically absent. No abnormal uptake. Vasculature: No abnormal uptake. Multifocal regions of atherosclerotic calcification are identified. Lymph nodes: Uptake within mediastinal and bilateral hilar lymph nodes are noted. Examples: Precarinal space measuring 1.1 cm in short axis (similar in size compared to the prior PET-CT) on image 102, SUV max 6.7 (previously 4.9); right hilar region, SUV max 4.5 (previously 4.3) on image 106, and left hilar region, SUV max 5.2 (previously 5.5) on image 111. Assessment of the size of bilateral hilar lymph nodes is limited without intravenous contrast. Previously noted small focus of uptake in the inferior thoracic canal currently demonstrates an SUV max 2.1 (previously 3.2) on image 147. Skeleton: No abnormal uptake in the visualized axial and appendicular skeleton. Degenerative changes of the bilateral sacroiliac joints and throughout the spine are present. A chronic moderate T11 vertebral body compression fracture is noted. Soft tissues: Elevated uptake within a similar in size right lateral breast mass is noted measuring 2.1 x 1.8 cm with a density likely related to a central biopsy clip on series 202, image 121, SUV max 3.6 (previously 3.7). METRICS: Mediastinal blood pool: SUV max 2.8, SUV mean 2.3 Liver uptake: SUV max 3.2, SUV mean 2.6 PET/PET skull to thigh SUBS [id number] IMPRESSION: 1. Bilateral radiotracer avid solid pulmonary nodules are present, some of which have increased in size while others are similar or decreased in size compared to the prior PET-CT. The majority of these nodules demonstrate an interval increase in uptake concerning for increased malignant involvement. 2. Uptake within a precarinal mediastinal lymph node has increased, with interval slight increase in uptake in the right hilar region and slight decrease in uptake in the left hilar region. This uptake can be related to malignancy or benign infectious or inflammatory involvement. 3. A right breast mass appears similar in size with minimal interval decrease in mildly elevated uptake in this region. A malignant etiology is not excluded. Correlation with clinical history is recommended. 4. Two uptake within the left adrenal gland is noted, which can be physiologic or inflammatory. A malignant etiology is less likely but not excluded. 5. Interval decrease in mild uptake in the thoracic spinal canal, which can be physiologic in nature. 6. Additional nonurgent findings as detailed above.
[2025-03-03 08:33] LABS: Basophils % 0.4 %; Eosinophils # 0.2 10^3/uL (0.0-0.8); Hematocrit 49.4 % (36-47); Lymphocytes # 2.4 10^3/uL (0.8-4.8); Mean Corpuscular HGB Conc 31.4 g/dL (30-55); Mean Corpuscular Hemoglobin 26.4 pg (27-33); Mean Corpuscular Volume 84.2 fl (85-98); Mean Platelet Volume 8.4 fL (7.4-10.4); Monocytes # 0.9 10^3/uL (0.2-0.9); Monocytes % 9.8 %; Neutrophils # 5.93 10^3/uL (1.8-7.7); Neutrophils % 62.6 %; Nucleated Red Blood Cells % 0 %; Platelet Count 384 10^3/cmm (157-399); Red Blood Count 5.87 10^6/uL (3.85-5.65); Red Cell Distribution Width 15.3 % (12.1-15.1); White Blood Count 9.48 10^3/uL (3.29-11.43)
[2025-03-03 09:00] LABS: Carcinoembryonic Antigen 8.5 ng/mL (0.0-4.7)
[2025-03-03 09:11] LABS: Alanine Aminotransferase 67 U/L (0-33); Alkaline Phosphatase 78 U/L (35-105); Anion Gap 15.1 (5-19); Aspartate Amino Transferase 27 U/L (0-32); Blood Urea Nitrogen 7 mg/dL (8-23); Calcium 9.7 mg/dL (8.5-10.5); Carbon Dioxide 26 mmol/L (22-29); Chloride 100 mmol/L (98-107); Creatinine Clr Calc Pharmacy 67.2915; Globulin 3.2 g/dL (1.3-4.6); Glomerular Filtration Rate 99.7 mL/min (90-130); Glucose 130 mg/dL (65-115); Osmolality Calculated 284 mOsm/kg (285-295); Potassium 4.1 mmol/L (3.5-5.1); Sodium 137 mmol/L (136-145); Total Bilirubin 0.2 mg/dL (0.15-1.2); Total Protein 7.2 g/dL (6.6-8.7)
== END 2025-03-14 23:59 | disposition home or self-care (01) ==
PROVIDERS: PCP Nurse Practitioner Family; Visit Provider Internal Medicine Medical Oncology
DX: C78.01 Secondary malignant neoplasm of right lung (principal); Z53.9 Procedure and treatment not carried out, unspecified reason; C18.0 Malignant neoplasm of cecum; Z95.828 Presence of other vascular implants and grafts; Z90.49 Acquired absence of other specified parts of digestive tract; Z87.891 Personal history of nicotine dependence; I10 Essential (primary) hypertension; Z92.21 Personal history of antineoplastic chemotherapy; G89.3 Neoplasm related pain (acute) (chronic); Z79.891 Long term (current) use of opiate analgesic; L27.1 Localized skin eruption due to drugs and medicaments taken internally; G62.0 Drug-induced polyneuropathy; T45.1X5A Adverse effect of antineoplastic and immunosuppressive drugs, initial encounter
CPT/HCPCS: 36591; 78815; 80053; 82378; 85025; 99214; A9552

== ENCOUNTER → 2025-03-30 13:00 | Outpatient (BNVA) | payer MEDICARE, MEDICAID, SELFPAY | PROVIDERS: PCP Nurse Practitioner Family; Visit Provider Internal Medicine | DX: I10 Essential (primary) hypertension (principal); E78.5 Hyperlipidemia, unspecified; R00.2 Palpitations; Z87.891 Personal history of nicotine dependence | CPT/HCPCS: 99213 ==

== ENCOUNTER 2025-05-01 14:30 | Oncology outpatient (recurring) (ONCR) | payer MEDICARE, MEDICAID, SELFPAY ==
[2025-04-14 11:03] LABS: Hematocrit 46.0 % (36-47); Hemoglobin 14.50 g/dL (11.27-16.99); Mean Corpuscular HGB Conc 31.5 g/dL (30-55); Mean Corpuscular Hemoglobin 25.7 pg (27-33); Mean Corpuscular Volume 81.6 fl (85-98); Nucleated Red Blood Cells % 0 %; Platelet Count 359 10^3/cmm (157-399); Red Blood Count 5.64 10^6/uL (3.85-5.65); White Blood Count 8.84 10^3/uL (3.29-11.43)
[2025-04-14 11:21] LABS: Alanine Aminotransferase 11 U/L (0-33); Albumin Level 3.9 g/dL (3.5-5.2); Alkaline Phosphatase 72 U/L (35-105); Anion Gap 19.0 (5-19); Aspartate Amino Transferase 12 U/L (0-32); Blood Urea Nitrogen 14 mg/dL (8-23); Calcium 9.7 mg/dL (8.5-10.5); Carbon Dioxide 24 mmol/L (22-29); Chloride 99 mmol/L (98-107); Globulin 2.9 g/dL (1.3-4.6); Glucose 107 mg/dL (65-115); Osmolality Calculated 287 mOsm/kg (285-295); Potassium 4.0 mmol/L (3.5-5.1); Sodium 138 mmol/L (136-145); Total Protein 6.8 g/dL (6.6-8.7)
[2025-04-14 12:07] LABS: Carcinoembryonic Antigen 8.7 ng/mL (0.0-4.7)
[2025-04-14 13:48] LABS: Iron 48 ug/dL (37-145); Total Iron Binding Capacity 368 mcg/dl; Unsaturated Iron Binding 320 ug/dL (112-347)
--- NOTE | 2025-05-01 14:30 | MR_ITS ---
WS: [id number] MRI PELVIS WITH AND WITHOUT CONTRAST. COMPARISON: PET/CT 02/27/2025 Multiplanar, multisequence imaging is performed with and without contrast. MultiHance 17 mL. History: Bilateral hip pain. History of malignant colon cancer. No acute fractures or marrow edema. No destructive bone lesions. Mild narrowing of the SI joints and hip joints. Mild osteophytic ridging around the acetabulum. There is mild surface irregularity of the femoral heads. No underlying marrow edema. Minimal joint effusion on the RIGHT. Soft tissues and muscles of the pelvis are symmetric. No free fluid in the pelvis. Urinary bladder is not distended. On the postcontrast images there is synovial thickening and enhancement surrounding the RIGHT hip. There is a small amount of fluid in the hip joint. MR/MR pelvis wo/w con [id number] IMPRESSION: 1. Small amount of fluid in the RIGHT hip joint with synovial thickening and e nhancement. Differential includes osteoarthritis, infection, trauma and autoimm une disease. 2. No fractures or marrow edema. 3. Mild bilateral hip joint osteoarthritis.
[2025-05-01] MEDS: gadobenate dimeglumine 20 mL vial 17 ML IV (14:59)
== END 2025-05-14 23:59 | disposition home or self-care (01) ==
LOC: RAD 05-02 00:01 → ONCMED 05-04 09:12
PROVIDERS: Nurse Practitioner; PCP Nurse Practitioner Family; Visit Provider Internal Medicine Medical Oncology
DX: C78.01 Secondary malignant neoplasm of right lung; C18.0 Malignant neoplasm of cecum; M16.0 Bilateral primary osteoarthritis of hip; R93.7 Abnormal findings on diagnostic imaging of other parts of musculoskeletal system; M46.1 Sacroiliitis, not elsewhere classified; Z53.9 Procedure and treatment not carried out, unspecified reason
CPT/HCPCS: 36591; 72197; 80053; 82378; 83540; 83550; 85025; 99214

== ENCOUNTER 2025-05-26 09:31 | Oncology outpatient (recurring) (ONCR) | payer MEDICARE, SELFPAY ==
[2025-05-26 09:56] LABS: Hematocrit 49.6 % (36-47); Hemoglobin 16.30 g/dL (11.27-16.99); Mean Corpuscular HGB Conc 32.9 g/dL (30-55); Mean Corpuscular Hemoglobin 27.0 pg (27-33); Mean Corpuscular Volume 82.3 fl (85-98); Nucleated Red Blood Cells % 0 %; Platelet Count 312 10^3/cmm (157-399); Red Blood Count 6.03 10^6/uL (3.85-5.65); White Blood Count 9.32 10^3/uL (3.29-11.43)
[2025-05-26 10:24] LABS: Carcinoembryonic Antigen 9.6 ng/mL (0.0-4.7)
[2025-05-26 10:35] LABS: Alanine Aminotransferase 17 U/L (0-33); Albumin Level 4.1 g/dL (3.5-5.2); Alkaline Phosphatase 81 U/L (35-105); Anion Gap 14.9 (5-19); Aspartate Amino Transferase 16 U/L (0-32); Blood Urea Nitrogen 9 mg/dL (8-23); Calcium 10.1 mg/dL (8.5-10.5); Carbon Dioxide 27 mmol/L (22-29); Chloride 98 mmol/L (98-107); Creatinine Clr Calc Pharmacy 72.6519; Globulin 3.1 g/dL (1.3-4.6); Glucose 134 mg/dL (65-115); Osmolality Calculated 283 mOsm/kg (285-295); Potassium 3.9 mmol/L (3.5-5.1); Sodium 136 mmol/L (136-145); Total Protein 7.2 g/dL (6.6-8.7)
[2025-05-27 14:34] LABS: COMPLEMENT, TOTAL (CH50) 60 U/mL (31-60)
[2025-05-27 20:29] LABS: COMPLEMENT COMPONENT C3C 179 mg/dL (83-193); COMPLEMENT COMPONENT C4C 23 mg/dL (15-57)
[2025-05-28 03:34] LABS: CENTROMERE B ANTIBODY <1.0 NEG AI (<1.0 NEG); JO-1 ANTIBODY <1.0 NEG AI (<1.0 NEG); RNP ANTIBODY 1.0 POS AI (<1.0 NEG); SCL-70 ANTIBODY <1.0 NEG AI (<1.0 NEG); SS-B <1.0 NEG AI (<1.0 NEG)
[2025-05-29 09:15] LABS: THYROID PEROXIDASE ANTIBODIES <1 IU/mL (<9)
[2025-05-31 17:31] LABS: DNA AB (DS) CRITHIDIA,IFA NEGATIVE (NEGATIVE)
== END 2025-06-14 23:59 | disposition home or self-care (01) ==
PROVIDERS: Nurse Practitioner Family; PCP Nurse Practitioner Family; Visit Provider Internal Medicine Medical Oncology
DX: Z08 Encounter for follow-up examination after completed treatment for malignant neoplasm (principal); Z85.038 Personal history of other malignant neoplasm of large intestine; Z85.118 Personal history of other malignant neoplasm of bronchus and lung; M25.50 Pain in unspecified joint; Z95.828 Presence of other vascular implants and grafts; Z87.891 Personal history of nicotine dependence; Z90.49 Acquired absence of other specified parts of digestive tract; I10 Essential (primary) hypertension; M25.551 Pain in right hip; Z92.21 Personal history of antineoplastic chemotherapy
CPT/HCPCS: 36415; 36591; 80053; 82378; 85025; 85651; 86140; 86160; 86162; 86200; 86235; 86255; 86376; 86431; 99214

== ENCOUNTER → 2025-06-01 14:46 | Outpatient (BNVA) | payer MEDICARE, SELFPAY | PROVIDERS: PCP Nurse Practitioner Family; Visit Provider Orthopaedic Surgery | DX: M17.11 Unilateral primary osteoarthritis, right knee (principal); M16.11 Unilateral primary osteoarthritis, right hip | CPT/HCPCS: 73502; 73560; 73565; 99204 ==

== ENCOUNTER 2025-07-07 11:54 | Oncology outpatient (recurring) (ONCR) | payer MEDICARE, SELFPAY ==
[2025-07-07 12:27] LABS: Hematocrit 48.5 % (36-47); Hemoglobin 15.60 g/dL (11.27-16.99); Mean Corpuscular HGB Conc 32.2 g/dL (30-55); Mean Corpuscular Hemoglobin 26.5 pg (27-33); Mean Corpuscular Volume 82.3 fl (85-98); Nucleated Red Blood Cells % 0 %; Platelet Count 338 10^3/cmm (157-399); Red Blood Count 5.89 10^6/uL (3.85-5.65); White Blood Count 8.96 10^3/uL (3.29-11.43)
[2025-07-07 12:51] LABS: Alanine Aminotransferase 16 U/L (0-33); Albumin Level 4.0 g/dL (3.5-5.2); Alkaline Phosphatase 71 U/L (35-105); Anion Gap 14.7 (5-19); Aspartate Amino Transferase 14 U/L (0-32); Blood Urea Nitrogen 15 mg/dL (8-23); Calcium 9.4 mg/dL (8.5-10.5); Carbon Dioxide 28 mmol/L (22-29); Chloride 100 mmol/L (98-107); Creatinine Clr Calc Pharmacy 73.4336; Ferritin 20 ng/mL (15-150); Globulin 2.8 g/dL (1.3-4.6); Glucose 137 mg/dL (65-115); Iron 78 ug/dL (37-145); Osmolality Calculated 291 mOsm/kg (285-295); Potassium 3.7 mmol/L (3.5-5.1); Sodium 139 mmol/L (136-145); Total Iron Binding Capacity 336 mcg/dl; Total Protein 6.8 g/dL (6.6-8.7); Unsaturated Iron Binding 258 ug/dL (112-347)
[2025-07-07 13:17] LABS: Carcinoembryonic Antigen 10.2 ng/mL (0.0-4.7)
== END 2025-07-14 23:59 | disposition home or self-care (01) ==
PROVIDERS: Nurse Practitioner Family; PCP Nurse Practitioner Family; Visit Provider Internal Medicine Medical Oncology
DX: C18.0 Malignant neoplasm of cecum (principal); C78.00 Secondary malignant neoplasm of unspecified lung; E61.1 Iron deficiency; R03.0 Elevated blood-pressure reading, without diagnosis of hypertension; Z92.21 Personal history of antineoplastic chemotherapy; Z95.828 Presence of other vascular implants and grafts; Z87.891 Personal history of nicotine dependence
CPT/HCPCS: 36591; 80053; 82378; 82728; 83540; 83550; 85025; 99213

== ENCOUNTER 2025-08-24 08:16 | Oncology outpatient (recurring) (ONCR) | payer MEDICARE, MEDICAID, SELFPAY ==
[2025-08-24 08:33] LABS: Hematocrit 47.4 % (36-47); Hemoglobin 15.20 g/dL (11.27-16.99); Mean Corpuscular HGB Conc 32.1 g/dL (30-55); Mean Corpuscular Hemoglobin 27.0 pg (27-33); Mean Corpuscular Volume 84.0 fl (85-98); Nucleated Red Blood Cells % 0 %; Platelet Count 365 10^3/cmm (157-399); Red Blood Count 5.64 10^6/uL (3.85-5.65); White Blood Count 11.64 10^3/uL (3.29-11.43)
[2025-08-24 08:56] LABS: Alanine Aminotransferase 14 U/L (0-33); Albumin Level 3.8 g/dL (3.5-5.2); Alkaline Phosphatase 67 U/L (35-105); Anion Gap 14.7 (5-19); Aspartate Amino Transferase 11 U/L (0-32); Blood Urea Nitrogen 21 mg/dL (8-23); Calcium 10.2 mg/dL (8.5-10.5); Carbon Dioxide 27 mmol/L (22-29); Chloride 96 mmol/L (98-107); Globulin 3.1 g/dL (1.3-4.6); Glucose 219 mg/dL (65-115); Osmolality Calculated 288 mOsm/kg (285-295); Potassium 3.7 mmol/L (3.5-5.1); Sodium 134 mmol/L (136-145); Total Protein 6.9 g/dL (6.6-8.7)
[2025-08-24 09:47] LABS: Carcinoembryonic Antigen 9.0 ng/mL (0.0-4.7)
== END 2025-09-13 23:59 | disposition home or self-care (01) ==
PROVIDERS: PCP Nurse Practitioner Family; Visit Provider Internal Medicine Medical Oncology
DX: C18.0 Malignant neoplasm of cecum (principal); C78.00 Secondary malignant neoplasm of unspecified lung; R09.02 Hypoxemia; J44.9 Chronic obstructive pulmonary disease, unspecified; Z95.828 Presence of other vascular implants and grafts; Z87.891 Personal history of nicotine dependence; Z92.21 Personal history of antineoplastic chemotherapy
CPT/HCPCS: 36591; 80053; 82378; 85025; 99214

== ENCOUNTER 2025-10-05 10:30 | Oncology outpatient (recurring) (ONCR) | payer MEDICARE, SELFPAY ==
--- NOTE | 2025-09-18 09:30 | PETR_ITS ---
PROCEDURE INFORMATION: Exam: PET/CT Skull Base to Mid-thigh Exam date and time: 09/18/2025 10:27 AM Age: 69 years old Clinical indication: Restaging of metastatic colon cancer with lung metastasis. Primary malignant neoplasm of cecum; Prior surgery; Surgery date: 6+ months; Surgery type: Port, hysterectomy. Additional info: Fibroadenoma in the right breast per biopsy on 08/18/2022. LABS AND CLINICAL REPORTS: Glucose: 161 mg/dl Treatment strategy for malignancy (PET staging): Restaging (PS) TECHNIQUE: Imaging protocol: Following at least four-hour fasting and following the injection of radiopharmaceutical, low dose CT images were obtained. Then, PET images were obtained. Attenuation corrected images were constructed using the CT scan. Fused images of PET and CT were reviewed. The standardized uptake values (SUV) reported below are maximum values within a region of interest, expressed in gm/ml. Exam includes orbital meatal line to mid-thigh. SUV normalization method: BodyWeight Radiopharmaceutical: 10.97 mCi F-18 FDG (Fluorodeoxyglucose), IV. Time of imaging post radiopharmaceutical administration: 46 minutes Injection site: right ac COMPARISON: PT PET skull to thigh SUBS [id number] 02/27/2025. Report of ultrasound guided biopsy of the right breast mass on 08/18/2022 is available for review. FINDINGS: Tubes, catheters and devices: Port catheter placed via the left subclavian vein terminates in the cavoatrial junction. Brain: On the nondedicated limited brain images there is no abnormal distribution of the radiotracer in the sandoval and white matter. Pharynx: Normal distribution of the radiotracer in nasopharyngeal, and oropharyngeal structures. Larynx: Normal distribution of the radiotracer in laryngeal structures. Lungs, pleura and trachea: There are persistent FDG-avid lung metastasis with no new lesions. The largest right lower lobe metastasis on axial image 112 measures 3 cm / 6.5 SUV, previously 2.2 cm/7.1 SUV. Right upper lobe metastasis on axial image 89 increased from 0.6 cm/7 SUV to 0.8 cm/10.4 SUV. Metastasis in the superior segment of the left lower lobe on axial image 93 increased from 0.7 cm/5 SUV to 1 cm / 6.3 SUV. Stable in size 1 cm inferior and medial metastasis in the left lower lobe on axial image 98 decreased in uptake from 8.8 SUV to 3.3 SUV. Stable perihilar left lower lobe metastasis on axial image 115 measures 8.7 SUV, previously 8.6 SUV. No pleural effusion. Heart: Normal physiologic uptake. There is no cardiomegaly. Mild coronary artery calcification is present. There is no pericardial effusion. Mediastinal space: No abnormal uptake. Liver: Normal size without abnormal radiotracer uptake. Gallbladder and biliary ducts: No abnormal uptake. Possible tiny calcified gallstone on axial image 202. Pancreas: Normal distribution of radiotracer. Spleen: Normal size with small calcified granulomas without abnormal radiotracer uptake. Adrenal glands: No abnormal uptake. Abnormal uptake previously present in the left adrenal has resolved. No nodules. Kidneys and ureters: Normal physiologic uptake. No hydronephrosis. 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 Stomach and bowel: Long segment of increased uptake in the left colon with no corresponding CT abnormality is benign. Stable changes post right hemicolectomy with no abnormality in the ileocolic anastomosis. No abnormal dilatation of the bowel. Intraperitoneal and retroperitoneal spaces: No abnormal uptake. No ascites. Bladder: Normal physiologic uptake. Reproductive: No abnormal uptake. The uterus is absent post surgically. Vasculature: No abnormal uptake. Lymph nodes: Borderline prominent in size mediastinal precarinal lymph node on axial image 98 measures 4.9 SUV, previously 6.7 SUV with stable anterior-posterior diameter of 1 cm. There is stable increased uptake within normal sized bilateral hilar lymph nodes measuring up to 4.4 SUV, previously 5.2 SUV. No FDG avid lymphadenopathy in the neck, abdomen, pelvis and extremities. Skeleton: No abnormal uptake in the visualized axial and appendicular skeleton. Soft tissues: Stable right breast nodule with central metallic markers suggestive of prior biopsy measures 2 cm assess 3.4 SUV, previously 2 cm/3.6 SUV represents known biopsy-proven fibroadenoma. METRICS: Mediastinal blood pool: Max SUV of 2.6, mean SUV of 2.2 Liver uptake: Max SUV of 3, mean SUV of 2.4 PET/PET skull to thigh SUBS [id number] IMPRESSION: In comparison with 02/27/2025 there are mixed changes in lung metastases with slight interval progression. The largest lung metastasis currently measures 3 cm versus 2.2 cm on the prior exam (mild morphologic progression); the overall highest current uptake is 10.4 SUV, previously 8.8 SUV, not meeting PERCIST criteria for progressive disease. There are no new FDG avid lesions. Persistent increased uptake within borderline in size mediastinal lymph nodes and normal in size bilateral hilar lymph nodes may be malignant or benign. There are no FDG-avid findings outside of the chest to suggest malignancy. Previously present indeterminate increased uptake in the left adrenal has resolved. There is stable mildly FDG avid biopsy-proven fibroadenoma in the right breast.
[2025-10-05 11:05] LABS: Hematocrit 45.1 % (36-47); Hemoglobin 14.60 g/dL (11.27-16.99); Mean Corpuscular HGB Conc 32.4 g/dL (30-55); Mean Corpuscular Hemoglobin 27.7 pg (27-33); Mean Corpuscular Volume 85.4 fl (85-98); Nucleated Red Blood Cells % 0 %; Platelet Count 363 10^3/cmm (157-399); Red Blood Count 5.28 10^6/uL (3.85-5.65); White Blood Count 8.27 10^3/uL (3.29-11.43)
[2025-10-05 11:35] LABS: Alanine Aminotransferase 14 U/L (0-33); Albumin Level 3.8 g/dL (3.5-5.2); Alkaline Phosphatase 72 U/L (35-105); Anion Gap 15.1 (5-19); Aspartate Amino Transferase 15 U/L (0-32); Blood Urea Nitrogen 15 mg/dL (8-23); Calcium 9.1 mg/dL (8.5-10.5); Carbon Dioxide 26 mmol/L (22-29); Chloride 95 mmol/L (98-107); Globulin 2.7 g/dL (1.3-4.6); Glucose 133 mg/dL (65-115); Osmolality Calculated 277 mOsm/kg (285-295); Potassium 4.1 mmol/L (3.5-5.1); Sodium 132 mmol/L (136-145); Total Protein 6.5 g/dL (6.6-8.7)
== END 2025-10-14 23:59 | disposition home or self-care (01) ==
PROVIDERS: PCP Nurse Practitioner Family; Visit Provider Internal Medicine Medical Oncology
DX: C18.0 Malignant neoplasm of cecum; C78.01 Secondary malignant neoplasm of right lung; Z95.828 Presence of other vascular implants and grafts; Z87.891 Personal history of nicotine dependence; Z53.9 Procedure and treatment not carried out, unspecified reason
CPT/HCPCS: 78815; 80053; 85025; 99214; A9552